=== PATIENT | female | born 1950 | race Caucasian/White ===

== ENCOUNTER 2017-02-02 09:20 | Inpatient (IN) | payer OTHER ==
--- NOTE | 2017-02-02 10:30 | PDOC ---
History of Present Illness <Nilay Cross - Last Filed: 02/02/17 11:22> - General History Source: Patient Exam Limitations: No Limitations - History of Present Illness Initial Comments: 02/02/17 10:36 The patient is a 66 year old female, with a significant past medical history of hypertension, hyperlipidemia,hypothyroidism, goiter s/p surgery, lower back pain , migraines, Raynauds syndrome, and possible thrombocythemia, who presents to the emergency department sent by her PCP Dr. Trujillo, for evaluation of blue left pinky toe for approximately 5 days.The patient reports she has been experiencing pain to her left pinky toe for approximately 2 weeks. At first she believed the pain was associated with her shoes. As a result she reports using wider low heel shoes. She denies any trauma to the left pinky toe. Patient reports walking around on Tuesday, which exacerbated her symptoms. After returning home, she reports experiencing left pinky toe swelling and sharp pinching sensations. Patient states she woke up in the middle of the night secondary to pain. Patient reports associated chills and sweats on Tuesday. Patient states she visited her PCP earlier this week for evaluation of her toe pain, who reported she had poor circulation and placed her on hydroxyurea BID and 81 mg aspirin once a day. Patient reports subjective fever, productive cough , and dizziness, but denies any abdominal pain, nausea, or vomiting. The patient denies any chest pain, shortness of breath, or palpitations. Patient reports cold-like symptoms approximately 1 week ago. Allergies: None reported. Past Surgical History: Thyroidectomy, Fibroidectomy, Ectopic , section Social History: Former smoker(Quit 1989). Denies alcohol or drug use. PCP: Dr. Trujillo <Muriel John - Last Filed: 02/02/17 15:46> - General Chief Complaint: Pain, Acute Stated Complaint: PCP SENT Time Seen by Provider: 02/02/17 09:38 Past History - Past Medical History Anemia: (THROMBOCYTOPENIA) Asthma: No Cancer: No Cardiac Disorders: No CVA: No COPD: No CHF: No Dementia: No Diabetes: No GI Disorders: Yes (H/O COLON POLYPS) Disorders: No HTN: Yes Hypercholesterolemia: Yes Liver Disease: No Seizures: No Thyroid Disease: Yes Other medical history: RAYNAUDS SYNDROME,MIGRAINES - Surgical History Abdominal Surgery: No Appendectomy: No Cardiac Surgery: No Cholecystectomy: No Lung Surgery: No Neurologic Surgery: No Orthopedic Surgery: No - Psycho/Social/Smoking Cessation Hx Suicidal Ideation: No Smoking History: Former smoker Have you smoked in the past 12 months: No If you are a former smoker, when did you quit?: 1989 Information on smoking cessation initiated: No Hx Alcohol Use: No Drug/Substance Use Hx: No Substance Use Type: None Hx Substance Use Treatment: No <Nilay Cross - Last Filed: 02/02/17 11:22> <Muriel John - Last Filed: 02/02/17 15:46> - Past Medical History Allergies/Adverse Reactions: Allergies Allergy/AdvReac Type Severity Reaction Status Date / Time No Known Allergies Allergy Verified 02/02/17 09:33 Home Medications: Ambulatory Orders Levothyroxine [Synthroid -] 88 mcg PO DAILY 01/20/15 Rosuvastatin Calcium [Crestor] 20 mg PO HS 01/20/15 Tramadol HCl [Ultram -] 50 mg PO PRN PRN 01/20/15 Aspirin [ASA -] 81 mg PO DAILY 02/02/17 Hydroxyurea [Hydrea] 500 mg PO BID 02/02/17 Nebivolol [Bystolic -] 5 mg PO DAILY 02/02/17 Omeprazole 40 mg PO DAILY 02/02/17 Review of Systems - Review of Systems Able to Perform ROS?: Yes Comments:: 02/02/17 10:37 CONSTITUTIONAL: Present: +Fever, +Chills, +Diaphoresis Absent: Generalized Weakness, Malaise, Loss of Appetite HEENT: Present: +Nasal Congestion Absent: Throat Pain, Throat Swelling, Difficulty Swallowing, Mouth Swelling, Ear Pain, Eye Pain, Visual Changes CARDIOVASCULAR: Absent: Chest Pain, Syncope, Palpitations, Irregular Heart Rate, Lightheadedness , Peripheral Edema RESPIRATORY: Present: +Cough Absent: Shortness of Breath, SOB with Exertion, Orthopnea, Wheezing, Stridor, Hemoptysis GASTROINTESTINAL: Absent: Abdominal pain, Abdominal Distension, Nausea, Vomiting, Diarrhea, Constipation, Melena, Hematochezia GENITOURINARY: Absent: Dysuria, Frequency, Urgency, Hesitancy, Flank Pain, Genital Pain MUSCULOSKELETAL: Present: +Swelling/ Erythema/ Blue Left pinky toe Absent: Myalgia, Back pain, Neck Pain SKIN: Absent: Rash, Itching, Pallor HEMEATOLOGIC/IMMUNOLOGIC: Present: +poor circulation Absent: Easy Bleeding, Easy Bruising, Lymphadenopathy, Frequent infections ENDOCRINE: Absent: Unexplained Weight Gain, Unexplained Weight Loss, Heat Intolerance, Cold Intolerance NEUROLOGIC: Present: +Dizziness Absent: Headache, Focal Weakness, Vertigo, Unsteady Gait, Seizure, Mental Status Changes, Incontinence PSYCHIATRIC: Absent: Anxiety, Depression <Muriel John - Last Filed: 02/02/17 15:46> *Physical Exam - Vital Signs Last Vital Signs Temp Pulse Resp BP Pulse Ox 98.6 F 71 16 148/72 99 02/02/17 09:28 02/02/17 09:28 02/02/17 09:28 02/02/17 09:28 02/02/17 09:28 <Nilay Cross - Last Filed: 02/02/17 11:22> - Vital Signs Last Vital Signs Temp Pulse Resp BP Pulse Ox 98.6 F 71 16 148/72 99 02/02/17 09:28 02/02/17 09:28 02/02/17 09:28 02/02/17 09:28 02/02/17 09:28 - Physical Exam Comments: 02/02/17 10:37 GENERAL: The patient is awake, alert, and fully oriented, in no acute distress. HEAD: Normal with no signs of trauma. EYES: Pupils equal, round and reactive to light, extraocular movements intact, sclera anicteric, conjunctiva clear. ENT: Ears normal, nares patent, oropharynx clear without exudates. Moist mucous membranes. NECK: Normal range of motion, supple without lymphadenopathy, JVD, or masses. LUNGS: Breath sounds equal, clear to auscultation bilaterally. No wheezes, and no crackles. HEART: Regular rate and rhythm, normal S1 and S2 without murmur, rub or gallop. ABDOMEN: Soft, nontender, normoactive bowel sounds. No guarding, no rebound. No masses. EXTREMITIES: Blue distally and erythematous proximal joint to the left 5th toe. Capillary refill 15 seconds in the left 5th toe. Toes are cold. Pain with dorsiflexion to the left 5th toe. Skin intact. Nail bed intact. Normal range of motion. No clubbing or cyanosis. No cords. NEUROLOGICAL: Cranial nerves II through XII grossly intact. Normal speech, normal gait. PSYCH: Normal mood, normal affect. SKIN: Warm, Dry, normal turgor, no rashes or lesions noted. CIRCULATION: Left leg femoral pulse 2+, DP 2+, PT 2+. Cap refill of toes 1-4 3 seconds, 5th toe 15 seconds. <Muriel John - Last Filed: 02/02/17 15:46> Heart Score/ECG Review - ECG Intrepretation Comment:: 02/02/17 10:30 Twelve-lead EKG was reviewed by me. The rhythm is normal sinus rhythm at a rate of 68 bpm. The axis is normal. The intervals are normal. There is nonspecific T-wave flattening in the lateral leads. Old EKG for comparison is pending at this time. <Nilay Cross - Last Filed: 02/02/17 11:22> ED Treatment Course - LABORATORY CBC & Chemistry Diagram: 02/02/17 10:05 02/02/17 10:05 - RADIOLOGY Radiology Studies Ordered: Category Date Time Status CHEST PA & LAT [RAD] Stat Radiology 02/02/17 10:02 Ordered TOE(S) LEFT [RAD] Stat Radiology 02/02/17 10:14 Ordered <Nilay Cross - Last Filed: 02/02/17 11:22> - LABORATORY CBC & Chemistry Diagram: 02/02/17 10:05 02/02/17 10:05 - RADIOLOGY Radiograph Interpretation: 02/02/17 15:43 EXAM: Toe X-Ray INTERPRETED BY: Dr. Jha REVIEWED BY: Dr. Cross IMPRESSION: Soft tissue changes are noted as above. No radiographic evidence of osteomyelitis is seen. MRI is more sensitive for detection of osteomyelitis. EXAM: CXR INTERPRETED BY: Dr. Alford REVIEWED BY: Dr. Cross IMPRESSION: No acute pathology. No significant change. <Muriel John - Last Filed: 02/02/17 15:46> Medical Decision Making - Medical Decision Making 02/02/17 11:22 66-year-old female with a history of hypertension and hyperlipidemia, former smoker quit many years ago, presents with pain and discoloration in her left fifth toe for more than a week. On examination, there is purplish discoloration and delayed capillary refill, up to 15 seconds capillary refill, but normal dorsalis pedis and posterior tibial pulses. X-ray of the left fifth toe shows no fracture or dislocation, no bony changes. Impression: Ischemic left fifth toe. No atrial fibrillation to suggest embolic disease. No history of diabetes mellitus. Patient also has a history of thrombocytosis. She was recently started on hydroxyurea and baby aspirin. Patient will be admitted for further evaluation of her ischemic toe. There is no evidence of open wound to the area. White blood cell count is elevated, but patient is afebrile. Laboratory Tests 02/02/17 10:05 WBC 16.0 H D RBC 5.33 H Hgb 13.9 Hct 42.3 MCV 79.4 L MCHC 32.8 RDW 16.1 H Plt Count 873 H D MPV 8.8 Neutrophils % 69.8 Lymphocytes % 18.1 D Monocytes % 7.7 Eosinophils % 3.5 Basophils % 0.9 Other lab results are pending at this time. <Nilay Cross - Last Filed: 02/02/17 11:22> - Medical Decision Making 02/02/17 11:41 First call placed to Dr. Trujillo at 11:41. Case discussed at this time. Agreed to admit. Will put in a consult to Dr. Garcia. <Muriel John - Last Filed: 02/02/17 15:46> *DC/Admit/Observation/Transfer - Discharge Dispostion Admit: Yes Decision to Admit order Date/Time: 02/02/17 11:26 <Nilay Cross - Last Filed: 02/02/17 11:22> - Attestations Scribe Attestion: 02/02/17 10:37 Documentation prepared by Muriel John, acting as medical records director for Nilay Cross MD. <Muriel John - Last Filed: 02/02/17 15:46> Diagnosis at time of Disposition: Ischemic toe, Thrombocytosis - Discharge Dispostion Condition at time of disposition: Stable - Referrals
[2017-02-02 11:05] LABS: BASOPHIL 0.9 % (0-2.0); EOSINOPHIL 3.5 % (0-4.5); MCHC 32.8 g/dl (32.0-36.0); MEAN CELL VOLUME 79.4 fl (80-96); MEAN PLT VOLUME 8.8 fl (7.5-11.1); NEUTROPHILS 69.8 % (42.8-82.8); PLATELET COUNT 873 K/MM3 (134-434); RDW 16.1 % (11.6-15.6)
[2017-02-02 11:11] LABS: INR 1.1 (0.82-1.09); PROTHROMBIN TIME (PATIENT) 12.1 SEC (9.98-11.88)
[2017-02-02 11:14] LABS: ACTIVATED PTT 30.9 SECONDS (26.9-34.4)
[2017-02-02 11:27] LABS: ANION GAP 9 (8-16); BILIRUBIN,TOTAL 0.6 mg/dL (0.2-1.0); CALCIUM 9.6 mg/dL (8.5-10.1); CO2 26 mmol/L (21-32); CREATININE 0.7 mg/dL (0.55-1.02); GLUCOSE,RANDOM 106 mg/dL (74-106); SGOT/AST 20 U/L (15-37); SGPT/ALT 22 U/L (12-78); TOT PROT 6.8 g/dl (6.4-8.2)
[2017-02-02 11:28] LABS: ALK PHOS 99 U/L (45-117)
--- NOTE | 2017-02-02 11:51 | EKG ---
Test Reason : Blood Pressure : / mmHG Vent. Rate : 068 BPM Atrial Rate : 068 BPM P-R Int : 132 ms QRS Dur : 080 ms QT Int : 394 ms P-R-T Axes : 047 068 090 degrees QTc Int : 418 ms NORMAL SINUS RHYTHM NONSPECIFIC T WAVE ABNORMALITY ABNORMAL ECG NO PREVIOUS ECGS AVAILABLE Confirmed by ALLYSSA EDWARDS, CURTIS ([id number]) on 02/02/2017 11:51:31 AM Referred By: Confirmed By:CURTIS SPIVEY MD
[2017-02-02 14:17] VITALS: BMI 25.2
--- NOTE | 2017-02-02 16:28 | CONSULT ---
Consult - Alcohol/Substance Use Hx Alcohol Use: No - Smoking History Smoking history: Former smoker Have you smoked in the past 12 months: No If you are a former smoker, when did you quit?: 1989 Home Medications - Allergies Allergies/Adverse Reactions: Allergies Allergy/AdvReac Type Severity Reaction Status Date / Time No Known Allergies Allergy Verified 02/02/17 09:33 - Home Medications Home Medications: Ambulatory Orders Levothyroxine [Synthroid -] 88 mcg PO DAILY 01/20/15 Rosuvastatin Calcium [Crestor] 20 mg PO HS 01/20/15 Tramadol HCl [Ultram -] 50 mg PO PRN PRN 01/20/15 Aspirin [ASA -] 81 mg PO DAILY 02/02/17 Hydroxyurea [Hydrea] 500 mg PO BID 02/02/17 Nebivolol [Bystolic -] 5 mg PO DAILY 02/02/17 Omeprazole 40 mg PO DAILY 02/02/17 Physical Exam Vital Signs: Vital Signs Temperature 98.6 F 02/02/17 14:12 Pulse Rate 69 02/02/17 14:12 Respiratory Rate 18 02/02/17 14:12 Blood Pressure 151/60 02/02/17 14:12 O2 Sat by Pulse Oximetry (%) 100 02/02/17 14:07 Assessment/Plan Vascular Surgery The patient is a 66 year old female, with a significant past medical history of hypertension, hyperlipidemia,hypothyroidism, goiter s/p surgery, lower back pain , migraines, Raynauds syndrome, and possible thrombocythemia, who presents to the emergency department sent by her PCP Dr. Trujillo, for evaluation of blue left pinky toe for approximately 5 days.The patient reports she has been experiencing pain to her left pinky toe for approximately 2 weeks. At first she believed the pain was associated with her shoes. As a result she reports using wider low heel shoes. She denies any trauma to the left pinky toe. Patient reports walking around on Tuesday, which exacerbated her symptoms. After returning home, she reports experiencing left pinky toe swelling and sharp pinching sensations. Patient states she woke up in the middle of the night secondary to pain. Patient reports associated chills and sweats on Tuesday. Patient states she visited her PCP earlier this week for evaluation of her toe pain, who reported she had poor circulation and placed her on hydroxyurea BID and 81 mg aspirin once a day. Patient reports subjective fever, productive cough , and dizziness, but denies any abdominal pain, nausea, or vomiting. The patient denies any chest pain, shortness of breath, or palpitations. Patient reports cold-like symptoms approximately 1 week ago. Allergies: None reported. Past Surgical History: Thyroidectomy, Fibroidectomy, Ectopic , section Social History: Former smoker(Quit 1989). Denies alcohol or drug use. PCP: Dr. Ronnie LEE Head - NC/AT Lung - CTA Heart - RRR abd - soft,nt,nd ext - Left foot warm,pink, Palpable DP and PT pulse. Left fifth toe discolored. A/P Left fifth toe discoloration for 5 dAYS. Pt does not comment on any trauma. Pt has palpable pulses. No need for any vascular intervention at this time. Could this be raynauds? Can treat with antibiotics. Will have to monitor toe to see how it progresses. Toe discoloration with pain could also be due to embolization from the aorta. Will follow Andrew Garcia DO
[2017-02-02] MEDS: SODIUM CHLORIDE 1,000 ML IV SCH (17:36)
[2017-02-02] MEDS: CEFAZOLIN (PRE-DOCKED) 50 ML IVPB SCH (20:50)
[2017-02-02] MEDS: HYDROXYUREA 500 MG CAPSULE PO SCH (21:31)
[2017-02-02] MEDS: ROSUVASTATIN CA 10 MG TABLET (FP) PO SCH (21:31)
[2017-02-02] MEDS: traMADol HCL 50 MG TABLET PO PRN (22:44)
[2017-02-03] MEDS: CEFAZOLIN (PRE-DOCKED) 50 ML IVPB SCH ×3 (01:25→18:29)
[2017-02-03] MEDS: SODIUM CHLORIDE 1,000 ML IV SCH ×2 (04:28→13:34)
[2017-02-03] MEDS: LEVOTHYROXINE NA 88 MCG TABLET (FP) PO SCH (07:26)
[2017-02-03] MEDS ORDERED: PT OWN MED DRAWER 7, Y5N ONE ×3 (10:11→21:15)
[2017-02-03] MEDS: ASPIRIN 81 MG CHEWABLE TABLETS PO SCH (10:15)
[2017-02-03] MEDS: HYDROXYUREA 500 MG CAPSULE PO SCH ×2 (10:15→21:38)
[2017-02-03] MEDS: NEBIVOLOL 5 MG TABLET (FP) PO SCH (10:15)
[2017-02-03] MEDS: PANTOPRAZOLE 40 MG TABLET (FP) PO SCH (10:15)
--- NOTE | 2017-02-03 10:29 | HP ---
Admitting History and Physical - Primary Care Physician PCP: Isiah Sumner - Admission Chief Complaint: left small toe discoloration History of Present Illness: ER HISTORY - History of Present Illness Initial Comments: 02/02/17 10:36 The patient is a 66 year old female, with a significant past medical history of hypertension, hyperlipidemia,hypothyroidism, goiter s/p surgery, lower back pain , migraines, Raynauds syndrome, and possible thrombocythemia, who presents to the emergency department sent by her PCP Dr. Sumner, for evaluation of blue left pinky toe for approximately 5 days.The patient reports she has been experiencing pain to her left pinky toe for approximately 2 weeks. At first she believed the pain was associated with her shoes. As a result she reports using wider low heel shoes. She denies any trauma to the left pinky toe. Patient reports walking around on Tuesday, which exacerbated her symptoms. After returning home, she reports experiencing left pinky toe swelling and sharp pinching sensations. Patient states she woke up in the middle of the night secondary to pain. Patient reports associated chills and sweats on Tuesday. Patient states she visited her PCP earlier this week for evaluation of her toe pain, who reported she had poor circulation and placed her on hydroxyurea BID and 81 mg aspirin once a day. Patient reports subjective fever, productive cough , and dizziness, but denies any abdominal pain, nausea, or vomiting. The patient denies any chest pain, shortness of breath, or palpitations. Patient reports cold-like symptoms approximately 1 week ago. Pt examined by me in the floors Family at bedside Has h/o Thrombocythemia-- seen by Dr sumner on 02/01 for blue left 5 th toe and was advised t go to ER at that time, but refused to go. She states that the bluish color has gotten better. Has pain at underside of toe. Able to move toes. She c/o dysphagia for many years now- she feels food stuck in her chest about 20 min after eating food. She had EGD done before which was normal per pt. She is able to ambulate without any difficulty History Source: Patient Limitations to Obtaining History: No Limitations - Past Medical History Cardiovascular: Yes: HTN, Hyperlipdemia Heme/Onc: Yes: Other (thrombocythemia) Rheumatology: Yes: Other (Reynaud's disease) Endocrine: Yes: Hypothyroidism - Smoking History Smoking history: Former smoker Have you smoked in the past 12 months: No If you are a former smoker, when did you quit?: 1989 - Alcohol/Substance Use Hx Alcohol Use: No Home Medications - Allergies Allergies/Adverse Reactions: Allergies Allergy/AdvReac Type Severity Reaction Status Date / Time No Known Allergies Allergy Verified 02/02/17 09:33 - Home Medications Home Medications: Ambulatory Orders Levothyroxine [Synthroid -] 88 mcg PO DAILY 01/20/15 Rosuvastatin Calcium [Crestor] 20 mg PO HS 01/20/15 Tramadol HCl [Ultram -] 50 mg PO PRN PRN 01/20/15 Aspirin [ASA -] 81 mg PO DAILY 02/02/17 Hydroxyurea [Hydrea] 500 mg PO BID 02/02/17 Nebivolol [Bystolic -] 5 mg PO DAILY 02/02/17 Omeprazole 40 mg PO DAILY 02/02/17 Review of Systems - Review of Systems Constitutional: denies: Chills, Fever, Loss of Appetite, Malaise, Unintentional Wgt. Loss, Weakness Musculoskeletal: reports: Other (toe pain) Physical Examination Vital Signs: Vital Signs Temperature 99 F 02/03/17 06:00 Pulse Rate 60 02/03/17 06:00 Respiratory Rate 20 02/03/17 06:00 Blood Pressure 126/64 02/03/17 06:00 O2 Sat by Pulse Oximetry (%) 100 02/02/17 21:00 Constitutional: Yes: No Distress, Calm Cardiovascular: Yes: Regular Rate and Rhythm Respiratory: Yes: CTA Bilaterally Gastrointestinal: Yes: Normal Bowel Sounds, Soft. No: Distention, Tenderness Extremities: Yes: Other (left 5th toe-- slight bluish in color, pulses palpable , foot is warm, intertrigo) Edema: No Psychiatric: Yes: Alert, Oriented Labs: Laboratory Last Values WBC 16.2 K/mm3 (4.0-10.0) H 02/03/17 10:30 RBC 4.92 M/mm3 (3.60-5.2) 02/03/17 10:30 Hgb 12.7 GM/dL (10.7-15.3) 02/03/17 10:30 Hct 38.7 % (32.4-45.2) 02/03/17 10:30 MCV 78.7 fl (80-96) L 02/03/17 10:30 MCHC 32.9 g/dl (32.0-36.0) 02/03/17 10:30 RDW 15.5 % (11.6-15.6) 02/03/17 10:30 Plt Count 859 K/MM3 (134-434) H 02/03/17 10:30 MPV 8.6 fl (7.5-11.1) 02/03/17 10:30 Neutrophils % 69.5 % (42.8-82.8) 02/03/17 10:30 Lymphocytes % 18.3 % (8-40) 02/03/17 10:30 Monocytes % 6.2 % (3.8-10.2) 02/03/17 10:30 Eosinophils % 4.5 % (0-4.5) 02/03/17 10:30 Basophils % 1.5 % (0-2.0) 02/03/17 10:30 ESR 10 mm/hr (0-30) 02/03/17 10:32 INR 1.10 (0.82-1.09) 02/02/17 10:05 PTT (Actin FS) 30.9 SECONDS (26.9-34.4) 02/02/17 10:05 Sodium 146 mmol/L (136-145) H 02/03/17 10:30 Potassium 4.5 mmol/L (3.5-5.1) 02/03/17 10:30 Chloride 111 mmol/L (98-107) H 02/03/17 10:30 Carbon Dioxide 28 mmol/L (21-32) 02/03/17 10:30 Anion Gap 7 (8-16) L 02/03/17 10:30 BUN 13 mg/dL (7-18) 02/03/17 10:30 Creatinine 0.8 mg/dL (0.55-1.02) 02/03/17 10:30 Creat Clearance w eGFR > 60 (>60) 02/03/17 10:30 Random Glucose 109 mg/dL (74-106) H 02/03/17 10:30 Lactic Acid 1.056 mmol/L (0.4-2.0) 02/02/17 10:50 Uric Acid 5.7 mg/dL (2.6-7.2) 02/03/17 10:30 Calcium 8.9 mg/dL (8.5-10.1) 02/03/17 10:30 Ferritin 51.415 ng/ml (6.9-282.5) 02/03/17 10:30 Total Bilirubin 0.7 mg/dL (0.2-1.0) 02/03/17 10:30 AST 17 U/L (15-37) 02/03/17 10:30 ALT 18 U/L (12-78) 02/03/17 10:30 Alkaline Phosphatase 88 U/L (45-117) 02/03/17 10:30 LD Total 207 U/L (84-246) 02/03/17 10:30 C-Reactive Protein 1.4 MG/DL (0.00-0.3) H 02/03/17 10:30 Total Protein 6.0 g/dl (6.4-8.2) L 02/03/17 10:30 Albumin 3.3 g/dl (3.4-5.0) L 02/03/17 10:30 Blood Type O POSITIVE 02/02/17 10:05 Antibody Screen Negative 02/02/17 10:05 Imaging - Results Chest X-ray: Image Reviewed (clear) X-ray: Report Reviewed (toe xray-- soft tissue swelling) EKG: Image Reviewed (sinus) Problem List - Problems (1) Ischemic toe Assessment/Plan: unlikely ischemic tracey as pt has warm extremities and good peripheral pulses Seen by Vascular Code(s): I99.8 - OTHER DISORDER OF CIRCULATORY SYSTEM (2) Thrombocytosis Assessment/Plan: Hematology evaluation On ASA and Hydroxyurea Code(s): D47.3 - ESSENTIAL (HEMORRHAGIC) THROMBOCYTHEMIA (3) Cellulitis Assessment/Plan: iv antibiotics Code(s): L03.90 - CELLULITIS, UNSPECIFIED Qualifiers: Site of cellulitis of extremity: toe Laterality: left (4) HTN (hypertension) Assessment/Plan: on meds monitor BP Code(s): I10 - ESSENTIAL (PRIMARY) HYPERTENSION Qualifiers: Hypertension type: essential hypertension Qualified Code(s): I10 - Essential (primary) hypertension
[2017-02-03 10:36] LABS: BASOPHIL 1.5 % (0-2.0); EOSINOPHIL 4.5 % (0-4.5); MCH 25.9 pg (25.7-33.7); MCHC 32.9 g/dl (32.0-36.0); MEAN CELL VOLUME 78.7 fl (80-96); MEAN PLT VOLUME 8.6 fl (7.5-11.1); NEUTROPHILS 69.5 % (42.8-82.8); PLATELET COUNT 859 K/MM3 (134-434); RDW 15.5 % (11.6-15.6); WHITE BLOOD COUNT 16.2 K/mm3 (4.0-10.0)
[2017-02-03 11:19] LABS: C-REACTIVE PROTEIN 1.4 MG/DL (0.00-0.3)
[2017-02-03 11:22] LABS: ALBUMIN 3.3 g/dl (3.4-5.0); ALK PHOS 88 U/L (45-117); ANION GAP 7 (8-16); BILIRUBIN,TOTAL 0.7 mg/dL (0.2-1.0); CALCIUM 8.9 mg/dL (8.5-10.1); CO2 28 mmol/L (21-32); COCKROFT - GAULT 74.8425; CREATININE 0.8 mg/dL (0.55-1.02); GLUCOSE,RANDOM 109 mg/dL (74-106); LDH 207 U/L (84-246); SGOT/AST 17 U/L (15-37); SGPT/ALT 18 U/L (12-78); URIC ACID 5.7 mg/dL (2.6-7.2)
[2017-02-03 11:24] LABS: FERRITIN 51.415 ng/ml (6.9-282.5)
[2017-02-03] MEDS ORDERED: LIDOCAINE HCL 1%, 10 MG/ML (20ML VIAL) ONE (13:15)
[2017-02-03] MEDS: NYSTATIN/TRIAMCINOLONE TOPICAL OINTMENT 15 GM TUBE TP SCH ×2 (13:52→21:39)
--- NOTE | 2017-02-03 14:58 | CONSULT ---
Admitting History and Physical - Primary Care Physician PCP: Vivian Jones - Admission History of Present Illness: Pt "c/o dysphagia for many years now- she feels food stuck in her chest about 20 min after eating food. She had EGD done before which was normal per pt" Pt reports c/o dysphagia with solid, food sticking in chest, followed by inability to eat or drink, 3 times a month. Denies vomiting or expectorating a lot of saliva at the time. She needs to stand up and walk around to clear it. She had an EGD a couple of years ago by Dr. Marino. She is now followed by Dr. Hoang.She reports frequent heartburn, "even on oatmeal". History Source: Patient, Family Member, Medical Record Limitations to Obtaining History: No Limitations - Past Medical History Cardiovascular: Yes: HTN, Hyperlipdemia Heme/Onc: Yes: Other (thrombocythemia) Rheumatology: Yes: Other (Reynaud's disease) Endocrine: Yes: Hypothyroidism - Smoking History Smoking history: Former smoker Have you smoked in the past 12 months: No If you are a former smoker, when did you quit?: 1989 - Alcohol/Substance Use Hx Alcohol Use: No History - Admission Reason For Visit: ISCHEMIA OF TOE - Diagnostics X-ray: Report Reviewed - General Mental Status: Alert and Oriented, Awake and Alert, Able to Follow Commands Attention: Intact Ability to Follow Directions: Excellent Head/Neck Control: WFL - Hearing Hearing: Normal Speech Evaluation - Communication Primary Language: GABONESE Communication: Yes: Within Normal Limits Oral Expression Ability: Yes: No Impairment - Speech Production Able to Make Needs Known: Yes: WNL Intelligibility: Yes: WNL - Speech Characteristics Voice Loudness: Normal Voice Pitch: Yes: Normal Voice Phonatory-based Quality: Yes: Normal Speech Pattern: Normal Speech Clarity: < 100% Nasal Resonance: Normal Rate of Speech: Intact - Language/Auditory Comprehension Follows: Yes: Complex Commands - Language/Verbal Expression Functional Communication Status: Yes: WNL - Memory/Perception prison Memory: Yes: WNL Short Term Memory: Yes: WNL - Swallow Evaluation/Bedside Assessment Current Nutritional Intake: Regular, Thin Liquids Oral Secretions: Yes: WFL Dentition: Yes: Adequate Facial Symmetry at Rest: Symmetrical Facial Symmetry on Retraction: Symmetrical Facial Movement: Controlled Against Resistance Opening: Normal Against Resistance Closing: Normal Pucker Lips: Normal Smile: Normal Lingual Movement: Normal, Symmetric Lingual Speed of Movement: Normal Lingual Movement Strgth Against Opposition: Normal Lingual Movement Characteristics: Normal Velopharyngeal Movement: Normal Laryngeal Elevation: WFL Laryngeal Movement: Able to Palpate Bolus Size: WFL Labial Seal: WFL Chewing: WFL Oral Prep Time: WFL A-P Transit: WFL Pocketing: None Timing of Swallow: WFL Coughing/Throat Clear: No Change in Voice: No Recommendations - Speech Evaluation, Impression/Plan Impression: Pt with c/o dysphagia on solids, frequent heartburn, using eating an "entire sandwich before drinking." Solids stick in chest, with improved passage while standing. R/o esophageal dysphagia, r/o GERD/gastritis, less likely stricture/schatzki's ring. Pt denies intake of caffiene, carbonation, citrus, ETOH,smoking and is upright after meals. - Dysphagia Impressions/Plan Swallowing Skills: Impaired Dysphagia Impressions: Ongoing Evaluation Recommendations: GI Consult (Dr. Hoang), MBS w Esophagus (ordered by pmd), Other (Alternate solids with liquids.) - Recommendations Diet Consistency: Regular (soft, moist, extra gravy/condiments), Other (GERD precautions) Medication Administration: Whole with water (denies difficulty with pills) Liquids: Thin Liquids
[2017-02-03] MEDS: ROSUVASTATIN CA 10 MG TABLET (FP) PO SCH (21:39)
--- NOTE | 2017-02-03 23:01 | CONSULT ---
Consult - text type - Consultation Consultation Note: Patient seen and examined The patient is a 66 year old female, with a significant past medical history of hypertension, hyperlipidemia,hypothyroidism, goiter s/p surgery, lower back pain , migraines, Raynauds syndrome, and possible thrombocythemia, who presents for evaluation of blue left pinky toe for approximately 2 weeks.The patient reports she has been experiencing pain to her left pinky toe for approximately 2 weeks. At first she believed the pain was associated with her shoes. As a result she reports using wider low heel shoes. She denies any trauma to the left pinky toe. It has been worse for last 5 days. Patient states she woke up in the middle of the night secondary to pain. Patient reports associated chills and sweats on Tuesday. Patient states she visited her PCP earlier this week for evaluation of her toe pain, who reported she had poor circulation and placed her on hydroxyurea BID and 81 mg aspirin once a day. The patient denies any chest pain, shortness of breath, or palpitations. Patient reports cold-like symptoms approximately 1 week ago. she denies - Past Medical History Cardiovascular: Yes: HTN, Hyperlipdemia Heme/Onc: Yes: Other (thrombocythemia) Rheumatology: Yes: Other (Reynaud's disease) Endocrine: Yes: Hypothyroidism PSH myomectomy fx repair carpal tunnel repair thyroid surgery - Smoking History Smoking history: Former smoker Home Medications - Allergies Allergies/Adverse Reactions: Allergies Allergy/AdvReac Type Severity Reaction Status Date / Time No Known Allergies Allergy Verified 02/02/17 09:33 - Home Medications Home Medications: Ambulatory Orders Levothyroxine [Synthroid -] 88 mcg PO DAILY 01/20/15 Rosuvastatin Calcium [Crestor] 20 mg PO HS 01/20/15 Tramadol HCl [Ultram -] 50 mg PO PRN PRN 01/20/15 Aspirin [ASA -] 81 mg PO DAILY 02/02/17 Hydroxyurea [Hydrea] 500 mg PO BID 02/02/17 Nebivolol [Bystolic -] 5 mg PO DAILY 02/02/17 Omeprazole 40 mg PO DAILY 02/02/17 Review of Systems - Review of Systems Constitutional: denies: Chills, Fever, Loss of Appetite, Malaise, Unintentional Wgt. Loss, Weakness Musculoskeletal: reports: Other (toe pain) Physical Examination Vital Signs: Vital Signs Temperature 99 F 02/03/17 06:00 Pulse Rate 60 02/03/17 06:00 Respiratory Rate 20 02/03/17 06:00 Blood Pressure 126/64 02/03/17 06:00 O2 Sat by Pulse Oximetry (%) 100 02/02/17 21:00 Constitutional: Yes: No Distress, Calm Cardiovascular: Yes: Regular Rate and Rhythm Respiratory: Yes: CTA Bilaterally Gastrointestinal: Yes: Normal Bowel Sounds, Soft. No: Distention, Tenderness Extremities: Yes: Other (left 5th toe-- slight bluish in color, pulses palpable , foot is warm, intertrigo) Edema: No Psychiatric: Yes: Alert, Oriented Labs: Laboratory Last Values WBC 16.2 K/mm3 (4.0-10.0) H 02/03/17 10:30 RBC 4.92 M/mm3 (3.60-5.2) 02/03/17 10:30 Hgb 12.7 GM/dL (10.7-15.3) 02/03/17 10:30 Hct 38.7 % (32.4-45.2) 02/03/17 10:30 MCV 78.7 fl (80-96) L 02/03/17 10:30 MCHC 32.9 g/dl (32.0-36.0) 02/03/17 10:30 RDW 15.5 % (11.6-15.6) 02/03/17 10:30 Plt Count 859 K/MM3 (134-434) H 02/03/17 10:30 MPV 8.6 fl (7.5-11.1) 02/03/17 10:30 Neutrophils % 69.5 % (42.8-82.8) 02/03/17 10:30 Lymphocytes % 18.3 % (8-40) 02/03/17 10:30 Monocytes % 6.2 % (3.8-10.2) 02/03/17 10:30 Eosinophils % 4.5 % (0-4.5) 02/03/17 10:30 Basophils % 1.5 % (0-2.0) 02/03/17 10:30 ESR 10 mm/hr (0-30) 02/03/17 10:32 INR 1.10 (0.82-1.09) 02/02/17 10:05 PTT (Actin FS) 30.9 SECONDS (26.9-34.4) 02/02/17 10:05 Sodium 146 mmol/L (136-145) H 02/03/17 10:30 Potassium 4.5 mmol/L (3.5-5.1) 02/03/17 10:30 Chloride 111 mmol/L (98-107) H 02/03/17 10:30 Carbon Dioxide 28 mmol/L (21-32) 02/03/17 10:30 Anion Gap 7 (8-16) L 02/03/17 10:30 BUN 13 mg/dL (7-18) 02/03/17 10:30 Creatinine 0.8 mg/dL (0.55-1.02) 02/03/17 10:30 Creat Clearance w eGFR > 60 (>60) 02/03/17 10:30 Random Glucose 109 mg/dL (74-106) H 02/03/17 10:30 Lactic Acid 1.056 mmol/L (0.4-2.0) 02/02/17 10:50 Uric Acid 5.7 mg/dL (2.6-7.2) 02/03/17 10:30 Calcium 8.9 mg/dL (8.5-10.1) 02/03/17 10:30 Ferritin 51.415 ng/ml (6.9-282.5) 02/03/17 10:30 Total Bilirubin 0.7 mg/dL (0.2-1.0) 02/03/17 10:30 AST 17 U/L (15-37) 02/03/17 10:30 ALT 18 U/L (12-78) 02/03/17 10:30 Alkaline Phosphatase 88 U/L (45-117) 02/03/17 10:30 LD Total 207 U/L (84-246) 02/03/17 10:30 C-Reactive Protein 1.4 MG/DL (0.00-0.3) H 02/03/17 10:30 Total Protein 6.0 g/dl (6.4-8.2) L 02/03/17 10:30 Albumin 3.3 g/dl (3.4-5.0) L 02/03/17 10:30 Blood Type O POSITIVE 02/02/17 10:05 Antibody Screen Negative 02/02/17 10:05 A/P 66 y/o with h/o autoimmune disease, comes in with Lt. 5th toe bluish discoloration and pain for 2 weeks, worsening since 4 days. Increase pain on elevation and improvement on hanging the legs down. Also platelets WBC elevated. 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
[2017-02-04] MEDS: CEFAZOLIN (PRE-DOCKED) 50 ML IVPB SCH ×3 (02:52→17:06)
[2017-02-04 06:06] LABS: SERUM IRON 60 ug/dL (27-139); TOTAL IRON BINDING CAPACITY 295 ug/dL (250-450); UIBC 235 ug/dL (118-369)
[2017-02-04] MEDS: LEVOTHYROXINE NA 88 MCG TABLET (FP) PO SCH (06:40)
--- NOTE | 2017-02-04 08:04 | PN ---
Progress Note (short form) - Note Progress Note: SUBJECTIVE: Patient seen and examined. Chart reviewed. Comfortable. Feels okay. Afebrile. OBJECTIVE: Vital Signs - 8 hr 02/04/17 07:52 Temperature 98.5 F Pulse Rate 62 Respiratory 20 Rate Blood Pressure 140/72 Intake & Output 02/03/17 02/04/17 02/04/17 23:59 07:59 15:59 Intake Total 1900 1450 Balance 1900 1450 Intake: IV 1400 1400 Normal Saline - 1,000 ml 1400 1400 @ 125 mls/hr IV ASDIR ALEX Rx#:[id number] IVPB 100 50 Oral 400 Other: Voiding Method Toilet # Unmeasured Voids Void 1 Active Medications Aspirin (Asa -) 81 mg PO DAILY [facility] Last Admin: 02/04/17 09:34 Dose: 81 mg Hydroxyurea (Hydrea -) 500 mg PO DAILY [facility] Hydroxyurea (Hydrea -) 1,000 mg PO HS [facility] Last Admin: 02/03/17 21:38 Dose: 1,000 mg Sodium Chloride (Normal Saline -) 1,000 mls @ 125 mls/hr IV ASDIR ALEX Last Admin: 02/03/17 13:34 Dose: 125 mls/hr Cefazolin Sodium (Ancef 1gm Ivpb (Pre-Docked)) 50 mls @ 100 mls/hr IVPB Q8H-IV [facility] Last Admin: 02/04/17 09:36 Dose: 100 mls/hr Levothyroxine Sodium (Synthroid -) 88 mcg PO DAILY@0700 [facility] Last Admin: 02/04/17 06:40 Dose: 88 mcg Nebivolol (Bystolic -) 5 mg PO DAILY [facility] Last Admin: 02/04/17 09:35 Dose: 5 mg Nystatin/Triamcinolone Acetonide (Mycolog Ii Ointment -) 1 applic TP BID [facility] Last Admin: 02/03/17 21:39 Dose: 1 applic Pantoprazole Sodium (Protonix -) 40 mg PO DAILY [facility] Last Admin: 02/04/17 09:34 Dose: 40 mg Rosuvastatin Calcium (Crestor -) 20 mg PO HS [facility] Last Admin: 02/03/17 21:39 Dose: 20 mg Tramadol HCl (Ultram -) 50 mg PO Q6H PRN PRN Reason: HEADACHE Last Admin: 02/02/17 22:44 Dose: 50 mg CBC, BMP 02/03/17 10:30 02/03/17 10:30 Laboratory Results - last 24 hr 02/03/17 02/03/17 02/03/17 10:30 10:30 10:30 ESR Sodium 146 H Potassium 4.5 Chloride 111 H Carbon Dioxide 28 Anion Gap 7 L BUN 13 Creatinine 0.8 Creat Clearance w eGFR > 60 Random Glucose 109 H Uric Acid 5.7 Calcium 8.9 Iron 60 TIBC 295 Iron Saturation 20 Ferritin 51.415 Total Bilirubin 0.7 AST 17 ALT 18 Alkaline Phosphatase 88 LD Total 207 C-Reactive Protein 1.4 H Total Protein 6.0 L Albumin 3.3 L 02/03/17 10:32 ESR 10 Sodium Potassium Chloride Carbon Dioxide Anion Gap BUN Creatinine Creat Clearance w eGFR Random Glucose Uric Acid Calcium Iron TIBC Iron Saturation Ferritin Total Bilirubin AST ALT Alkaline Phosphatase LD Total C-Reactive Protein Total Protein Albumin Microbiology 02/03/17 10:25 Blood Culture - Preliminary Blood - Peripheral Venous NO GROWTH OBTAINED AFTER 24 HOURS, INCUBATION TO CONTINUE FOR 4 DAYS. 02/03/17 10:20 Blood Culture - Preliminary Blood - Peripheral Venous NO GROWTH OBTAINED AFTER 24 HOURS, INCUBATION TO CONTINUE FOR 4 DAYS. PHYSICAL EXAMINATION: Constitutional: Yes: No Distress, Calm Cardiovascular: Yes: Regular Rate and Rhythm Respiratory: Yes: CTA Bilaterally Gastrointestinal: Yes: Normal Bowel Sounds, Soft. No: Distention, Tenderness Extremities: Yes: Other (left 5th toe-- slight bluish in color, pulses palpable , foot is warm) Edema: No Problem List - Problems (1) Ischemic toe Code(s): I99.8 - OTHER DISORDER OF CIRCULATORY SYSTEM (2) Thrombocytosis Code(s): D47.3 - ESSENTIAL (HEMORRHAGIC) THROMBOCYTHEMIA (3) Cellulitis Code(s): L03.90 - CELLULITIS, UNSPECIFIED Qualifiers: Site of cellulitis of extremity: toe Laterality: left (4) HTN (hypertension) Code(s): I10 - ESSENTIAL (PRIMARY) HYPERTENSION ASSESSMENT & PLAN: - Overall better. - Continue antibiotics. - Monitor CBC. - Discussed with Dr. Baker today. - Workup in progress. - Increased Aspirin to BID. - Will follow. Documentation prepared by Dianelys Huerta, acting as a medical physiologist for Deonte Cui MD.
[2017-02-04] MEDS: PANTOPRAZOLE 40 MG TABLET (FP) PO SCH (09:34)
[2017-02-04] MEDS: ASPIRIN 81 MG CHEWABLE TABLETS PO SCH ×2 (09:34→21:31)
[2017-02-04] MEDS: NEBIVOLOL 5 MG TABLET (FP) PO SCH (09:35)
[2017-02-04] MEDS ORDERED: HYDROXYUREA 500 MG CAPSULE PO SCH (10:00)
[2017-02-04] MEDS: SODIUM CHLORIDE 1,000 ML IV SCH (10:04)
[2017-02-04] MEDS: NYSTATIN/TRIAMCINOLONE TOPICAL OINTMENT 15 GM TUBE TP SCH ×2 (10:04→21:31)
--- NOTE | 2017-02-04 12:20 | PN ---
Progress Note (short form) - Note Progress Note: Patient seen and examined Discussed with Dr. Cui Complains of pain in pinky on dorsiflexion of foot Last Vital Signs Temp Pulse Resp BP Pulse Ox 98.5 F 62 20 140/72 100 02/04/17 07:52 02/04/17 07:52 02/04/17 07:52 02/04/17 07:52 02/03/17 21:00 HEENT: SUZY, EOM Intact, Large Pupils Oropharynx: No thrush, No mucositis Neck: Supple Nodes: Without adenopathy Breasts: Without masses Cor: RSR, No murmurs, No gallops Lungs: Clear to P&A Abd: Soft, Normal bowel sounds, No organomegaly Ext: somewhat bluish pinky with good pulses on left Skin: No rashes, Integument intact CBC, BMP 02/03/17 10:30 02/03/17 10:30 Current Medications Generic Name Dose Route Start Last Admin Trade Name Freq PRN Reason Stop Dose Admin Aspirin 81 mg 02/04/17 22:00 Asa - PO BID ALEX Hydroxyurea 500 mg 02/04/17 10:00 Hydrea - PO DAILY ALEX Hydroxyurea 1,000 mg 02/03/17 22:00 02/03/17 21:38 Hydrea - PO 1,000 mg HS ALEX Administration Sodium Chloride 1,000 mls @ 125 mls/hr 02/02/17 11:45 02/03/17 13:34 Normal Saline - IV 125 mls/hr ASDIR ALEX Administration Cefazolin Sodium 50 mls @ 100 mls/hr 02/02/17 20:00 02/04/17 09:36 Ancef 1gm Ivpb (Pre-Docked) IVPB 100 mls/hr Q8H-IV ALEX Administration Levothyroxine Sodium 88 mcg 02/03/17 07:00 02/04/17 06:40 Synthroid - PO 88 mcg DAILY@0700 ALEX Administration Nebivolol 5 mg 02/03/17 10:00 02/04/17 09:35 Bystolic - PO 5 mg DAILY ALEX Administration Nystatin/Triamcinolone Acetonide 1 applic 02/03/17 12:15 02/03/17 21:39 Mycolog Ii Ointment - TP 1 applic BID ALEX Administration Pantoprazole Sodium 40 mg 02/03/17 10:00 02/04/17 09:34 Protonix - PO 40 mg DAILY ALEX Administration Rosuvastatin Calcium 20 mg 02/02/17 22:00 02/03/17 21:39 Crestor - PO 20 mg HS ALEX Administration Tramadol HCl 50 mg 02/02/17 19:54 02/02/17 22:44 Ultram - PO 50 mg Q6H PRN Administration HEADACHE Impression: Likely E.T RICHELLE-2 CALRETICULIN, mpl AND Richelle-12,13, MUTATIONS PENDING. iF POSITIVE , THIS WOULD CONFIRM DIAGNOSIS. CURRENTLY ON HYDREA. WHEN PLATELETS < 450K, LESS BLEEDING RISK TO PROCEED WITH BONE MARROW IF NEEDED. ASA-81 INCREASED TO BID.
--- NOTE | 2017-02-04 12:58 | PATH ---
Surgical Pathology Report Patient Name: ARMANDO GOLDSMITH [facility] Rec. #: [id number] /Age/Gender: 1950 (Age: 66) / F Account: [id number] Location: [facility] MED/SURG Taken: 02/03/2017 Received: 02/03/2017 Reported: 02/04/2017 Physicians: Angelia Chatterjee M.D. Specimen(s) Received PERIPHERAL BLOOD Clinical History None Provided Final Diagnosis PERIPHERAL BLOOD: FLOW CYTOMETRY [facility] [place] ([id number]) shows the following: INTERPRETATION: No atypical flow cytometric findings. PHENOTYPE: Lymphocytes include polyclonal B cells, NK cells and immunophenotypically normal CD4+ and CD8+ T cells in normal proportions. No evidence of a clonal lymphoid expansion. Granulocytes are immunophenotypically mature. Comment: Molecular studies are pending, and a report will follow. Electronically Signed Sawyer Carrasquillo M.D. Addendum Reported: 02/04/2017 Addendum Diagnosis JAK2 V617F MUTATION ANALYSIS BY PCR PERFORMED AND INTERPRETED AT [facility] [place] ([id number]) SHOWED THE FOLLOWING: RESULTS: BOTH MUTANT AND WILD-TYPE JAK2 SEQUENCES WERE DETECTED. INTERPRETATION: POSITIVE FOR JAK2 V617F MUTATION. Comment: The acquired somatic V617F JAK2 mutation has been found in a majority of patients with Polycythemia Vera (PV)(>90%), and 30-50% of patients with either essential thrombocythemia (ET) and or myelofibrosis (MF) according to literature. The mutation is not detected in normal individuals. Bobby Solitario M.D. Addendum Reported: 02/08/2017 Addendum Diagnosis Molecular Pathology Report received from [facility] in [place], [place] ([id number]) shows the following: BCR/ABL GENE REARRANGEMENT (IS) ANALYSIS RESULTS: NEGATIVE BCR/ABL Major Breakpoints (b2a2 and b3a2): NOT DETECTED BCR/ABL Minor Breakpoint (e1a2): NOT DETECTED INTERPRETATION: No BCR-ABL translocation was detected in this sample. Sawyer Carrasquillo M.D. Gross Description Received are 2 green top tubes and 2 lavender top tubes of blood which are sent to [facility]. DL/02/03/2017 saudi/02/03/2017
[2017-02-04] MEDS ORDERED: PT OWN MED DRAWER 7, Y5N ONE (21:25)
[2017-02-04] MEDS: ROSUVASTATIN CA 10 MG TABLET (FP) PO SCH (21:31)
[2017-02-04] MEDS: HYDROXYUREA 500 MG CAPSULE PO SCH (21:31)
[2017-02-05] MEDS: CEFAZOLIN (PRE-DOCKED) 50 ML IVPB SCH ×3 (01:47→18:09)
[2017-02-05] MEDS: LEVOTHYROXINE NA 88 MCG TABLET (FP) PO SCH (06:15)
[2017-02-05] MEDS: traMADol HCL 50 MG TABLET PO PRN ×2 (06:17→14:40)
[2017-02-05 07:35] LABS: BASOPHIL 1.2 % (0-2.0); EOSINOPHIL 5.3 % (0-4.5); MCH 26.3 pg (25.7-33.7); MCHC 33.2 g/dl (32.0-36.0); MEAN CELL VOLUME 79.2 fl (80-96); MEAN PLT VOLUME 8.7 fl (7.5-11.1); PLATELET COUNT 856 K/MM3 (134-434); RDW 15.6 % (11.6-15.6); WHITE BLOOD COUNT 15.5 K/mm3 (4.0-10.0)
[2017-02-05 08:04] LABS: ALBUMIN 3.6 g/dl (3.4-5.0); ANION GAP 10 (8-16); CALCIUM 9.7 mg/dL (8.5-10.1); CO2 25 mmol/L (21-32); GLUCOSE,RANDOM 85 mg/dL (74-106)
[2017-02-05 08:06] LABS: IGG IMMUNOGLOBULIN 703 mg/dL (700-1600); IGM IMMUNOGLOBULIN 101 mg/dL (26-217)
[2017-02-05 08:12] LABS: ALK PHOS 86 U/L (45-117); BILIRUBIN,TOTAL 0.9 mg/dL (0.2-1.0); COCKROFT - GAULT 85.5355; CREATININE 0.7 mg/dL (0.55-1.02); SGOT/AST 16 U/L (15-37); SGPT/ALT 17 U/L (12-78); TOT PROT 6.3 g/dl (6.4-8.2)
--- NOTE | 2017-02-05 09:00 | PN ---
Progress Note (short form) - Note Progress Note: Patient seen and examined Complains of pain in left pinky. Improved on standins. Remains bluish in color. ROS- otherwise non revealing__ no headache, diplopia, epistaxis, dysphagia, GI complaints, complaints Last Vital Signs Temp Pulse Resp BP Pulse Ox 97.3 F L 63 18 155/84 97 02/05/17 06:00 02/05/17 06:00 02/05/17 06:00 02/05/17 06:00 02/04/17 21:00 HEENT: SUZY, EOM Intact Oropharynx: No thrush, No mucositis Neck: Supple Cor: RSR, No murmurs, No gallops Lungs: Clear to P&A Abd: Soft, Normal bowel sounds, No organomegaly Ext:No significant edema Pinky left foot remains with bluish discoloration Pulses distally 2+ Skin: No rashes, Integument intact CBC, BMP 02/05/17 07:20 02/05/17 07:20 Impression: RICHELLE-2 positive. This confirms diagnosis of Essential thrombocythemia . Platelets remain elevated . To increase hydrea. Would maintain BID-- ASA-81 mg.
[2017-02-05 09:06] LABS: URIC ACID 4.5 mg/dL (2.6-7.2)
[2017-02-05] MEDS ORDERED: PT OWN MED DRAWER 7, Y5N ONE ×3 (09:35→21:45)
[2017-02-05] MEDS: ASPIRIN 81 MG CHEWABLE TABLETS PO SCH ×2 (09:56→21:58)
[2017-02-05] MEDS: PANTOPRAZOLE 40 MG TABLET (FP) PO SCH (09:56)
[2017-02-05] MEDS: SODIUM CHLORIDE 1,000 ML IV SCH ×3 (09:57→18:11)
[2017-02-05] MEDS: NEBIVOLOL 5 MG TABLET (FP) PO SCH (09:57)
[2017-02-05] MEDS: NYSTATIN/TRIAMCINOLONE TOPICAL OINTMENT 15 GM TUBE TP SCH (09:57)
--- NOTE | 2017-02-05 11:02 | PN ---
Progress Note, Physician Chief Complaint: left 5th toe painful - Current Medication List Current Medications: Active Medications Aspirin (Asa -) 81 mg PO BID [facility] Last Admin: 02/05/17 09:56 Dose: 81 mg Hydroxyurea (Hydrea -) 1,000 mg PO Q12H [facility] Sodium Chloride (Normal Saline -) 1,000 mls @ 125 mls/hr IV ASDIR [facility] Last Admin: 02/05/17 09:57 Dose: 125 mls/hr Cefazolin Sodium (Ancef 1gm Ivpb (Pre-Docked)) 50 mls @ 100 mls/hr IVPB Q8H-IV [facility] Last Admin: 02/05/17 09:56 Dose: 100 mls/hr Levothyroxine Sodium (Synthroid -) 88 mcg PO DAILY@0700 [facility] Last Admin: 02/05/17 06:15 Dose: 88 mcg Nebivolol (Bystolic -) 5 mg PO DAILY [facility] Last Admin: 02/05/17 09:57 Dose: 5 mg Nystatin/Triamcinolone Acetonide (Mycolog Ii Ointment -) 1 applic TP BID [facility] Last Admin: 02/05/17 09:57 Dose: 1 applic Pantoprazole Sodium (Protonix -) 40 mg PO DAILY [facility] Last Admin: 02/05/17 09:56 Dose: 40 mg Rosuvastatin Calcium (Crestor -) 20 mg PO HS [facility] Last Admin: 02/04/17 21:31 Dose: 20 mg Tramadol HCl (Ultram -) 50 mg PO Q6H PRN PRN Reason: HEADACHE Last Admin: 02/05/17 06:17 Dose: 50 mg - Objective Vital Signs: Vital Signs Temperature 97.3 F L 02/05/17 06:00 Pulse Rate 63 02/05/17 06:00 Respiratory Rate 18 02/05/17 06:00 Blood Pressure 155/84 02/05/17 06:00 O2 Sat by Pulse Oximetry (%) 97 02/04/17 21:00 Constitutional: Yes: No Distress Cardiovascular: Yes: Regular Rate and Rhythm Respiratory: Yes: CTA Bilaterally Gastrointestinal: Yes: Normal Bowel Sounds, Soft. No: Tenderness Extremities: Yes: Other (bluish discoloration left 5th toe , tender+) Edema: No Labs: CBC, BMP 02/05/17 07:20 02/05/17 07:20 INR, PTT INR 1.10 (0.82-1.09) 02/02/17 10:05 Problem List - Problems (1) Ischemic toe Code(s): I99.8 - OTHER DISORDER OF CIRCULATORY SYSTEM (2) Thrombocytosis Code(s): D47.3 - ESSENTIAL (HEMORRHAGIC) THROMBOCYTHEMIA (3) Cellulitis Code(s): L03.90 - CELLULITIS, UNSPECIFIED Qualifiers: Site of cellulitis of extremity: toe Laterality: left (4) HTN (hypertension) Code(s): I10 - ESSENTIAL (PRIMARY) HYPERTENSION Assessment/Plan PLAN Hematology follow up noted ASA and Hydroxyurea increased continue with meds Check labs DC planning per Hematology
[2017-02-05] MEDS: HYDROXYUREA 500 MG CAPSULE PO SCH ×2 (11:18→21:58)
[2017-02-05 14:10] LABS: VON WILL RISTOCETIN CO-FACTOR 98 % (50-200)
[2017-02-05] MEDS: ROSUVASTATIN CA 10 MG TABLET (FP) PO SCH (21:58)
[2017-02-06] MEDS: traMADol HCL 50 MG TABLET PO PRN (01:26)
[2017-02-06] MEDS: CEFAZOLIN (PRE-DOCKED) 50 ML IVPB SCH ×3 (01:27→17:59)
[2017-02-06] MEDS: LEVOTHYROXINE NA 88 MCG TABLET (FP) PO SCH (06:07)
[2017-02-06 07:57] LABS: BASOPHIL 1.2 % (0-2.0); EOSINOPHIL 4.5 % (0-4.5); MCH 26.4 pg (25.7-33.7); MCHC 33.4 g/dl (32.0-36.0); MEAN CELL VOLUME 79.1 fl (80-96); MEAN PLT VOLUME 8.7 fl (7.5-11.1); NEUTROPHILS 70.8 % (42.8-82.8); PLATELET COUNT 842 K/MM3 (134-434); RDW 15.9 % (11.6-15.6); WHITE BLOOD COUNT 15.7 K/mm3 (4.0-10.0)
[2017-02-06 08:20] LABS: ALBUMIN 3.3 g/dl (3.4-5.0); ANION GAP 6 (8-16); BILIRUBIN,TOTAL 0.5 mg/dL (0.2-1.0); CALCIUM 8.9 mg/dL (8.5-10.1); CO2 27 mmol/L (21-32); CREATININE 0.6 mg/dL (0.55-1.02); GLUCOSE,RANDOM 88 mg/dL (74-106); LDH 179 U/L (84-246); SGOT/AST 15 U/L (15-37); SGPT/ALT 14 U/L (12-78); TOT PROT 5.8 g/dl (6.4-8.2); URIC ACID 4.1 mg/dL (2.6-7.2)
[2017-02-06 08:21] LABS: ALK PHOS 77 U/L (45-117)
--- NOTE | 2017-02-06 09:02 | PN ---
Progress Note, Physician Chief Complaint: has pain in left toe - Current Medication List Current Medications: Active Medications Aspirin (Asa -) 81 mg PO BID [facility] Last Admin: 02/05/17 21:58 Dose: 81 mg Hydroxyurea (Hydrea -) 1,000 mg PO Q12H [facility] Last Admin: 02/05/17 21:58 Dose: 1,000 mg Sodium Chloride (Normal Saline -) 1,000 mls @ 125 mls/hr IV ASDIR [facility] Last Admin: 02/05/17 18:11 Dose: 125 mls/hr Cefazolin Sodium (Ancef 1gm Ivpb (Pre-Docked)) 50 mls @ 100 mls/hr IVPB Q8H-IV [facility] Last Admin: 02/06/17 01:27 Dose: 100 mls/hr Levothyroxine Sodium (Synthroid -) 88 mcg PO DAILY@0700 [facility] Last Admin: 02/06/17 06:07 Dose: 88 mcg Nebivolol (Bystolic -) 5 mg PO DAILY [facility] Last Admin: 02/05/17 09:57 Dose: 5 mg Pantoprazole Sodium (Protonix -) 40 mg PO DAILY [facility] Last Admin: 02/05/17 09:56 Dose: 40 mg Rosuvastatin Calcium (Crestor -) 20 mg PO HS [facility] Last Admin: 02/05/17 21:58 Dose: 20 mg Tramadol HCl (Ultram -) 50 mg PO Q6H PRN PRN Reason: HEADACHE Last Admin: 02/06/17 01:26 Dose: 50 mg - Objective Vital Signs: Vital Signs Temperature 98.9 F 02/06/17 06:50 Pulse Rate 63 02/06/17 06:50 Respiratory Rate 18 02/06/17 06:50 Blood Pressure 146/97 02/06/17 06:50 O2 Sat by Pulse Oximetry (%) 97 02/05/17 09:00 Constitutional: Yes: No Distress Cardiovascular: Yes: Regular Rate and Rhythm Respiratory: Yes: CTA Bilaterally Extremities: Yes: Other (decreased blue discoloration left 5 th toe) Edema: No Labs: CBC, BMP 02/06/17 06:00 02/06/17 06:00 INR, PTT INR 1.10 (0.82-1.09) 02/02/17 10:05 Problem List - Problems (1) Ischemic toe Code(s): I99.8 - OTHER DISORDER OF CIRCULATORY SYSTEM (2) Thrombocytosis Code(s): D47.3 - ESSENTIAL (HEMORRHAGIC) THROMBOCYTHEMIA (3) Cellulitis Code(s): L03.90 - CELLULITIS, UNSPECIFIED Qualifiers: Site of cellulitis of extremity: toe Laterality: left (4) HTN (hypertension) Code(s): I10 - ESSENTIAL (PRIMARY) HYPERTENSION Qualifiers: Hypertension type: essential hypertension Qualified Code(s): I10 - Essential (primary) hypertension Assessment/Plan PLAN spoke with Hematology may need to increase Hydroxyurea further platelets still high dc antibiotics-- not cellulitis pain control OOB
[2017-02-06] MEDS ORDERED: PT OWN MED DRAWER 7, Y5N ONE ×3 (10:25→21:18)
[2017-02-06] MEDS: ASPIRIN 81 MG CHEWABLE TABLETS PO SCH ×2 (11:03→21:28)
[2017-02-06] MEDS: PANTOPRAZOLE 40 MG TABLET (FP) PO SCH (11:03)
[2017-02-06] MEDS: HYDROXYUREA 500 MG CAPSULE PO SCH (11:03)
[2017-02-06] MEDS: NEBIVOLOL 5 MG TABLET (FP) PO SCH (11:12)
--- NOTE | 2017-02-06 14:10 | PN ---
Progress Note (short form) - Note Progress Note: Patient seen and examined Still with pain left pinky with blue discoloration. Pulses intact Last Vital Signs Temp Pulse Resp BP Pulse Ox 98.9 F 55 L 18 146/75 97 02/06/17 06:50 02/06/17 11:01 02/06/17 11:01 02/06/17 11:01 02/06/17 09:00 HEENT: SUZY, EOM Intact Oropharynx: No thrush, No mucositis Cor: RSR, No murmurs, No gallops Lungs: scattered rhonchi Abd: Soft, Normal bowel sounds, No organomegaly Ext:No significant edema Skin: bluish discoloration of pinky on left peripheral pulses intact 02/06/17 06:00 02/06/17 06:00 Current Medications Generic Name Dose Route Start Last Admin Trade Name Freq PRN Reason Stop Dose Admin Aspirin 81 mg 02/04/17 22:00 02/06/17 11:03 Asa - PO 81 mg BID ALEX Administration Hydroxyurea 1,000 mg 02/05/17 10:00 02/06/17 11:03 Hydrea - PO 1,000 mg Q12H ALEX Administration Sodium Chloride 1,000 mls @ 125 mls/hr 02/02/17 11:45 02/05/17 18:11 Normal Saline - IV 125 mls/hr ASDIR ALEX Administration Cefazolin Sodium 50 mls @ 100 mls/hr 02/02/17 20:00 02/06/17 11:02 Ancef 1gm Ivpb (Pre-Docked) IVPB 100 mls/hr Q8H-IV ALEX Administration Levothyroxine Sodium 88 mcg 02/03/17 07:00 02/06/17 06:07 Synthroid - PO 88 mcg DAILY@0700 ALEX Administration Nebivolol 5 mg 02/03/17 10:00 02/06/17 11:12 Bystolic - PO 5 mg DAILY ALEX Administration Pantoprazole Sodium 40 mg 02/03/17 10:00 02/06/17 11:03 Protonix - PO 40 mg DAILY ALEX Administration Rosuvastatin Calcium 20 mg 02/02/17 22:00 02/05/17 21:58 Crestor - PO 20 mg HS ALEX Administration Tramadol HCl 50 mg 02/02/17 19:54 02/06/17 01:26 Ultram - PO 50 mg Q6H PRN Administration HEADACHE Impression: ET Vascular changes left foot Plan increase hydrea Would have vascular f/u
[2017-02-06] MEDS ORDERED: HYDROXYUREA 500 MG CAPSULE PO SCH ×2 (14:11→22:00)
[2017-02-06] MEDS: SODIUM CHLORIDE 1,000 ML IV SCH (16:56)
[2017-02-06] MEDS: ROSUVASTATIN CA 10 MG TABLET (FP) PO SCH (21:28)
[2017-02-07] MEDS: LEVOTHYROXINE NA 88 MCG TABLET (FP) PO SCH (06:55)
[2017-02-07 07:46] LABS: MCH 26.3 pg (25.7-33.7); MCHC 33.2 g/dl (32.0-36.0); MEAN CELL VOLUME 79.3 fl (80-96); PLATELET COUNT 924 K/MM3 (134-434); RDW 15.8 % (11.6-15.6); WHITE BLOOD COUNT 15.1 K/mm3 (4.0-10.0)
--- NOTE | 2017-02-07 08:32 | PN ---
Progress Note (short form) - Note Progress Note: Subjective Patient seen and examined. Chart reviewed. All follow ups noted. Denies pain. L foot fifth toe remains blue-daniel. Objective Last Vital Signs Temp Pulse Resp BP Pulse Ox 98.5 F 62 18 145/83 97 02/07/17 06:00 02/07/17 06:00 02/07/17 06:00 02/07/17 06:00 02/06/17 09:00 CBC, BMP 02/07/17 06:00 02/06/17 06:00 Laboratory Results - last 24 hr 02/07/17 06:00 WBC 15.1 H RBC 4.79 Hgb 12.6 Hct 38.0 MCV 79.3 L MCHC 33.2 RDW 15.8 H Plt Count 924 H MPV 9.0 Physical Exam Constitutional: Yes: No Distress Cardiovascular: Yes: Regular Rate and Rhythm Respiratory: Yes: CTA Bilaterally Extremities: Yes: Other (decreased blue discoloration left 5 th toe) Edema: No Assessment and Plan Continue present care. Hydroxyurea increased. Platelets increased today. Continue hydroxyurea and aspirin. Bone marrow biopsy?? Will discuss with Dr. Baker Discussed with Dr. Andrew Garcia today. No surgical intervention planned. Monitor platelets. Documentation prepared by Oxana Aden, acting as a biomedical engineering director for Deonte Cui MD.
--- NOTE | 2017-02-07 09:28 | PN ---
Progress Note (short form) - Note Progress Note: Vascular Surgery Pt seen and examined. Walking without any pain. Left foot - palapable DP pulse. Toe less ischemic. less pain. Will cont to monitor. Andrew Garcia DO
[2017-02-07] MEDS ORDERED: HYDROXYUREA 500 MG CAPSULE PO SCH ×3 (10:00→22:00)
[2017-02-07] MEDS ORDERED: PT OWN MED DRAWER 7, Y5N ONE ×2 (10:50→22:29)
[2017-02-07] MEDS: NEBIVOLOL 5 MG TABLET (FP) PO SCH (10:59)
[2017-02-07] MEDS: PANTOPRAZOLE 40 MG TABLET (FP) PO SCH (10:59)
[2017-02-07] MEDS: ASPIRIN 81 MG CHEWABLE TABLETS PO SCH ×2 (10:59→23:04)
--- NOTE | 2017-02-07 11:34 | CON.CARD ---
Consult Consult Specialty:: cardio Referred by:: hugo Reason for Consultation:: ? toe ischemia/embolism - History of Present Illness Chief Complaint: blue toe History of Present Illness: 66 yo female here with blue toe; being evaluated by vascular--no surgery/procedures planned; ? raynaud's related suspected myeloproliferative disorder per heme--hydrea started she was dx'd with Raynaud's years ago by at [facility], never rx'd meds. says "all tests were good". has not had f/u with rheum denies cp, sob, palpitations PMH: hypertension, hyperlipidemia,hypothyroidism, goiter s/p surgery, lower back pain, migraines, Raynauds syndrome, and possible thrombocythemia, who presents for evaluation of blue left pinky toe for approximately 2 weeks - Past Medical History Cardio/Vascular: Yes: HTN, Hyperlipdemia Rheumatology: Yes: Other (Reynaud's disease) Endocrine: Yes: Hypothyroidism - Alcohol/Substance Use Hx Alcohol Use: No - Smoking History Smoking history: Former smoker Have you smoked in the past 12 months: No If you are a former smoker, when did you quit?: 1989 Home Medications - Allergies Allergies/Adverse Reactions: Allergies Allergy/AdvReac Type Severity Reaction Status Date / Time No Known Allergies Allergy Verified 02/02/17 09:33 - Home Medications Home Medications: Ambulatory Orders Levothyroxine [Synthroid -] 88 mcg PO DAILY 01/20/15 Rosuvastatin Calcium [Crestor] 20 mg PO HS 01/20/15 Tramadol HCl [Ultram -] 50 mg PO PRN PRN 01/20/15 Aspirin [ASA -] 81 mg PO DAILY 02/02/17 Hydroxyurea [Hydrea] 500 mg PO BID 02/02/17 Nebivolol [Bystolic -] 5 mg PO DAILY 02/02/17 Omeprazole 40 mg PO DAILY 02/02/17 Review of Systems - Review of Systems Constitutional: denies: Chills, Fever Eyes: denies: Eye Pain HENT: denies: Nasal Congestion Neck: denies: Stiffness Cardiovascular: denies: Palpitations Respiratory: denies: Orthopnea, PND Gastrointestinal: denies: Diarrhea, Rectal Bleeding Genitourinary: denies: Burning, Hematuria Musculoskeletal: denies: Muscle Pain Integumentary: denies: Rash Neurological: denies: Numbness, Seizure, Syncope Endocrine: denies: Excessive Sweating Hematology/Lymphatic: denies: Excessive Bleeding Vital Signs: Vital Signs Temperature 98.5 F 02/07/17 06:00 Pulse Rate 62 02/07/17 06:00 Respiratory Rate 18 02/07/17 06:00 Blood Pressure 145/83 02/07/17 06:00 O2 Sat by Pulse Oximetry (%) 97 02/06/17 09:00 Constitutional: Yes: Well Nourished, No Distress Eyes: No: Sclera Icterus HENT: No: Nasal Congestion Neck: No: Decreased ROM Respiratory: Yes: CTA Bilaterally. No: Accessory Muscle Use Gastrointestinal: Yes: Normal Bowel Sounds. No: Distention, Hepatomegaly, Palpable Mass, Tenderness Cardiovascular: Yes: Regular Rate and Rhythm JVD: No Carotid Bruit: No PMI: Non-Displaced Heart Sounds: Yes: S1, S2. No: Gallop Murmur: No: Systolic Murmur, Diastolic Murmur Musculoskeletal: Yes: Other (No kyphosis) Extremities: Yes: Cyanosis (L 5th toe; 2+ DP pulse; skin not cool). No: Cool Edema: No Peripheral Pulses: 2+ Left Carotid, 2+ Right Carotid, 2+ Left Doralis Pedis, 2+ Right Dorsalis Pedis Integumentary: No: Jaundice Neurological: Yes: Alert, Oriented (x3) Psychiatric: No: Agitated - Other Data Labs, Other Data: CBC, BMP 02/07/17 06:00 02/06/17 06:00 INR, PTT INR 1.10 (0.82-1.09) 02/02/17 10:05 Laboratory Tests 02/06/17 02/07/17 06:00 06:00 WBC 15.1 H Hgb 12.6 Plt Count 924 H Sodium 142 Potassium 5.0 Carbon Dioxide 27 BUN 11 Creatinine 0.6 AST 15 ALT 14 ekg 02/02: NSR; normal axis/interv; no path Q's; NSTWAs (no old) Assessment/Plan HTN: -bp controlled -same meds -CCB add-on trial as below (if bp drops, hold bystolic) HPL: -cont outpt tx hi PLTs/WBCs, suspected myeloproliferative disorder -heme following, on hydrea peripheral cyanosis: -vascular following -PAD not suspected by them (good palpable pulse on exam, skin not cool) -? raynaud's related--will add amlodipine to bp regimen in case this is raynaud' s -? due to sluggish flow from thrombocytopenia-->hyperviscosity (on meds per heme ) -will check LE arterial doppler though distal embolism seems very unlikely per vascular -echo as below -defer holter if no suspicious findings for embolism arise abnormal ECG: -nonspecific TWAs -no angina sx's -will check echo -defer stress test if remains asymptomatic
[2017-02-07] MEDS: amLODIPine BESYLATE 5 MG TABLET (FP) PO SCH (13:44)
[2017-02-07] MEDS: SODIUM CHLORIDE 1,000 ML IV SCH (16:46)
--- NOTE | 2017-02-07 17:07 | PN ---
Progress Note (short form) - Note Progress Note: PAtient seen and examined Lt. foot purplish toe Last Vital Signs Temp Pulse Resp BP Pulse Ox 98.6 F 60 18 146/67 97 02/07/17 14:36 02/07/17 14:36 02/07/17 14:36 02/07/17 14:36 02/07/17 09:00 Cor: RSR, No murmurs, No gallops Lungs: Clear to P&A Abd: Soft, Normal bowel sounds, No organomegaly Ext:No significant edema Abnormal Lab Results 02/07/17 06:00 WBC 15.1 H MCV 79.3 L RDW 15.8 H Plt Count 924 H Active Medications Generic Name Dose Route Start Last Admin Trade Name Freq PRN Reason Stop Dose Admin Amlodipine Besylate 5 mg 02/07/17 11:45 02/07/17 13:44 Norvasc - PO 5 mg DAILY ALEX Administration Aspirin 81 mg 02/04/17 22:00 02/07/17 10:59 Asa - PO 81 mg BID ALEX Administration Hydroxyurea 500 mg 02/08/17 10:00 Hydrea - PO DAILY ALEX Hydroxyurea 1,000 mg 02/07/17 22:00 Hydrea - PO HS ALEX Levothyroxine Sodium 88 mcg 02/03/17 07:00 02/07/17 06:55 Synthroid - PO 88 mcg DAILY@0700 ALEX Administration Nebivolol 5 mg 02/03/17 10:00 02/07/17 10:59 Bystolic - PO 5 mg DAILY ALEX Administration Pantoprazole Sodium 40 mg 02/03/17 10:00 02/07/17 10:59 Protonix - PO 40 mg DAILY ALEX Administration Rosuvastatin Calcium 20 mg 02/02/17 22:00 02/06/17 21:28 Crestor - PO 20 mg HS ALEX Administration Tramadol HCl 50 mg 02/02/17 19:54 02/06/17 01:26 Ultram - PO 50 mg Q6H PRN Administration HEADACHE A/P 66 y/o patient with thrombocytosis/purple toe JAK2+ On hydrea 1500mg daily/1000 mg daily alternating-- will change to 1500mg daily On ASA 81 mg bid disucssed with vascular--microvascular ischemia continue ASA/Hydrea monitor
--- NOTE | 2017-02-07 22:56 | CONSULT ---
Consult Consult Specialty:: Rheumatology - History of Present Illness History of Present Illness: 66 year old female, with a significant past medical history of Raynauds syndrome, intermittent dysphagia, hypertension, hyperlipidemia,hypothyroidism, goiter s/p surgery, lower back pain, migraines andessential thrombocythemia, admitted with blue discoloration of the left 5th toe. HPI. Two weeks ago she developed mild discomfort in the left 5th toe. One week ago she developed bluish discoloration of the left 5th toe and swelling of the left foot. The swelling of the foot improved, however she continues to have blue discoloration of the toe. On admission she was found to have platelets count of 873 and ESR of 10. Pulses were normal. 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 She has been treated with Hydroxyurea. Raynaud's phenomenon. Isaw the patient in February 2016. At that time she reported progressive Raynaud's since 2013, pain in leroy right wrist and a 4 month history of dysphagia to solids and liquids. Work-up revealed MARAGRITA 1:320 with centromere pattern. Anti-SCL=to and RNA polymerase III were negative. On the physical examination there was no sclerodactily or proximal scleroderma, she had no telangiectasia, calcinosis or ischemic changes in tips of digits. Based on these findings she did nto have scleroderma, however I could not rule out an early stage of CREST. I suggested PFT and Echo that apparently were not done. Further work-up in this admission revealed an essential normal echocardiogram ( RVSP 25), and barium swallow normal - Past Medical History Cardio/Vascular: Yes: HTN, Hyperlipdemia Rheumatology: Yes: Other (Reynaud's disease) Endocrine: Yes: Hypothyroidism - Alcohol/Substance Use Hx Alcohol Use: No - Smoking History Smoking history: Former smoker Have you smoked in the past 12 months: No If you are a former smoker, when did you quit?: 1989 Home Medications - Allergies Allergies/Adverse Reactions: Allergies Allergy/AdvReac Type Severity Reaction Status Date / Time No Known Allergies Allergy Verified 02/02/17 09:33 - Home Medications Home Medications: Ambulatory Orders Levothyroxine [Synthroid -] 88 mcg PO DAILY 01/20/15 Rosuvastatin Calcium [Crestor] 20 mg PO HS 01/20/15 Tramadol HCl [Ultram -] 50 mg PO PRN PRN 01/20/15 Aspirin [ASA -] 81 mg PO DAILY 02/02/17 Hydroxyurea [Hydrea] 500 mg PO BID 02/02/17 Nebivolol [Bystolic -] 5 mg PO DAILY 02/02/17 Omeprazole 40 mg PO DAILY 02/02/17 Review of Systems - Review of Systems Constitutional: reports: No Symptoms Eyes: reports: No Symptoms HENT: reports: No Symptoms Neck: reports: No Symptoms Cardiovascular: reports: No Symptoms Respiratory: reports: No Symptoms Gastrointestinal: reports: No Symptoms Musculoskeletal: reports: Other Integumentary: reports: Other (See HPI) Physical Exam Vital Signs: Vital Signs Temperature 98.2 F 02/07/17 17:48 Pulse Rate 60 02/07/17 17:48 Respiratory Rate 18 02/07/17 17:48 Blood Pressure 153/74 02/07/17 17:48 O2 Sat by Pulse Oximetry (%) 97 02/07/17 09:00 Constitutional: Yes: No Distress Eyes: Yes: WNL HENT: Yes: WNL Neck: Yes: WNL Cardiovascular: Yes: WNL Respiratory: Yes: WNL Gastrointestinal: Yes: WNL Musculoskeletal: Yes: Other (No active joints) Extremities: Yes: Other (Bluish discoloration and tenderness in the left 5th toe. Pulses were normal.) Labs: CBC, BMP 02/07/17 06:00 02/06/17 06:00 Laboratory Tests 02/03/17 02/03/17 02/04/17 10:30 10:32 06:15 ESR 10 Total Bilirubin AST ALT Alkaline Phosphatase LD Total C-Reactive Protein 1.4 H IgG 703 IgA 125 IgM 101 02/06/17 06:00 ESR Total Bilirubin 0.5 D AST 15 ALT 14 Alkaline Phosphatase 77 LD Total 179 C-Reactive Protein IgG IgA IgM Problem List - Problems (1) Ischemic toe Assessment/Plan: Ischemia in the left 45th toe, etiology to be determined. TRule out ischemia secondary to thrombocytosis, and Rule our Raynaud's. Less likely atherosclerotic plaque. The patient does not have scleroderma, questionable early CREST. She does nto have other connective tissue disease - no vasculitis, Plan: I will discuss with Hemastology and PCP - obtaining skin Bx. Continue same medications Code(s): I99.8 - OTHER DISORDER OF CIRCULATORY SYSTEM
[2017-02-07] MEDS: HYDROXYUREA 500 MG CAPSULE PO SCH (23:05)
[2017-02-07] MEDS: ROSUVASTATIN CA 10 MG TABLET (FP) PO SCH (23:05)
[2017-02-07] MEDS: traMADol HCL 50 MG TABLET PO PRN (23:06)
[2017-02-08 00:15] LABS: A/G RATIO 1.2 (0.7-1.7); ALBUMIN 3.1 g/dL (2.9-4.4); GLOBULIN, TOTAL 2.6 g/dL (2.2-3.9); M-SPIKE Not Observed g/dL (Not Observed); TOTAL PROTEIN 5.7 g/dL (6.0-8.5)
[2017-02-08] MEDS: LEVOTHYROXINE NA 88 MCG TABLET (FP) PO SCH (07:07)
[2017-02-08 07:53] LABS: BASOPHIL 1.4 % (0-2.0); EOSINOPHIL 3.1 % (0-4.5); MCH 26.8 pg (25.7-33.7); MCHC 34.2 g/dl (32.0-36.0); MEAN CELL VOLUME 78.6 fl (80-96); MEAN PLT VOLUME 8.9 fl (7.5-11.1); NEUTROPHILS 71.3 % (42.8-82.8); PLATELET COUNT 944 K/MM3 (134-434); RDW 15.2 % (11.6-15.6); WHITE BLOOD COUNT 13.1 K/mm3 (4.0-10.0)
[2017-02-08] MEDS ORDERED: HYDROXYUREA 500 MG CAPSULE PO SCH (10:00)
[2017-02-08] MEDS ORDERED: PT OWN MED DRAWER 7, Y5N ONE ×3 (10:25→22:51)
[2017-02-08] MEDS: NEBIVOLOL 5 MG TABLET (FP) PO SCH (10:31)
[2017-02-08] MEDS: PANTOPRAZOLE 40 MG TABLET (FP) PO SCH (10:31)
[2017-02-08] MEDS: ASPIRIN 81 MG CHEWABLE TABLETS PO SCH ×2 (10:31→23:00)
[2017-02-08] MEDS: amLODIPine BESYLATE 5 MG TABLET (FP) PO SCH (10:31)
[2017-02-08] MEDS: HYDROXYUREA 500 MG CAPSULE PO SCH ×2 (10:32→23:00)
--- NOTE | 2017-02-08 12:04 | PN ---
Progress Note, Physician Chief Complaint: has pain in left toe, decreased - Current Medication List Current Medications: Active Medications Amlodipine Besylate (Norvasc -) 5 mg PO DAILY [facility] Last Admin: 02/08/17 10:31 Dose: 5 mg Aspirin (Asa -) 81 mg PO BID [facility] Last Admin: 02/08/17 10:31 Dose: 81 mg Hydroxyurea (Hydrea -) 1,500 mg PO BID [facility] Last Admin: 02/08/17 10:32 Dose: 1,500 mg Levothyroxine Sodium (Synthroid -) 88 mcg PO DAILY@0700 [facility] Last Admin: 02/08/17 07:07 Dose: 88 mcg Nebivolol (Bystolic -) 5 mg PO DAILY [facility] Last Admin: 02/08/17 10:31 Dose: 5 mg Pantoprazole Sodium (Protonix -) 40 mg PO DAILY [facility] Last Admin: 02/08/17 10:31 Dose: 40 mg Rosuvastatin Calcium (Crestor -) 20 mg PO HS [facility] Last Admin: 02/07/17 23:05 Dose: 20 mg Tramadol HCl (Ultram -) 50 mg PO Q6H PRN PRN Reason: HEADACHE Last Admin: 02/07/17 23:06 Dose: 50 mg - Objective Vital Signs: Vital Signs Temperature 100.4 F H 02/08/17 09:00 Pulse Rate 63 02/08/17 09:00 Respiratory Rate 16 02/08/17 09:00 Blood Pressure 150/80 02/08/17 09:00 O2 Sat by Pulse Oximetry (%) 97 02/08/17 09:00 Constitutional: Yes: No Distress Cardiovascular: Yes: Regular Rate and Rhythm Respiratory: Yes: CTA Bilaterally Gastrointestinal: Yes: Normal Bowel Sounds, Soft. No: Tenderness Extremities: Yes: Other (left 5th toe blue) Edema: No Labs: CBC, BMP 02/08/17 06:15 02/06/17 06:00 INR, PTT INR 1.10 (0.82-1.09) 02/02/17 10:05 Problem List - Problems (1) Ischemic toe Code(s): I99.8 - OTHER DISORDER OF CIRCULATORY SYSTEM (2) Thrombocytosis Code(s): D47.3 - ESSENTIAL (HEMORRHAGIC) THROMBOCYTHEMIA (3) Cellulitis Code(s): L03.90 - CELLULITIS, UNSPECIFIED Qualifiers: Site of cellulitis of extremity: toe Laterality: left (4) HTN (hypertension) Code(s): I10 - ESSENTIAL (PRIMARY) HYPERTENSION Qualifiers: Hypertension type: essential hypertension Qualified Code(s): I10 - Essential (primary) hypertension Assessment/Plan PLAN platelets higher Hematology follow up continue with meds Rheumatology eval noted-- pt does not want to do skin biopsy pain control OOB arterial doppler normal Echo - normal
[2017-02-08 14:11] LABS: ALBUMIN 3.6 g/dl (3.4-5.0); ANION GAP 10 (8-16); BILIRUBIN,TOTAL 0.7 mg/dL (0.2-1.0); CALCIUM 9.7 mg/dL (8.5-10.1); CO2 26 mmol/L (21-32); COCKROFT - GAULT 74.8425; CREATININE 0.8 mg/dL (0.55-1.02); GLUCOSE,RANDOM 121 mg/dL (74-106); LDH 216 U/L (84-246); SGOT/AST 16 U/L (15-37); SGPT/ALT 17 U/L (12-78); TOT PROT 6.4 g/dl (6.4-8.2)
[2017-02-08 14:12] LABS: ALK PHOS 91 U/L (45-117)
--- NOTE | 2017-02-08 16:06 | PN ---
Progress Note (short form) - Note Progress Note: Patient seen and examined Prior notes reviewed Last Vital Signs Temp Pulse Resp BP Pulse Ox 97.9 F 62 18 115/58 97 02/08/17 14:00 02/08/17 14:00 02/08/17 14:00 02/08/17 14:00 02/08/17 09:00 HEENT: SUZY, EOM Intact Oropharynx: No thrush, No mucositis Cor: RSR, No murmurs, No gallops Lungs: Clear to P&A Abd: Soft, Normal bowel sounds, No organomegaly Ext: left 5th toe remains bluish with good pulses Skin: No rashes, Integument intact CBC, BMP 02/08/17 06:15 02/08/17 13:20 Current Medications Generic Name Dose Route Start Last Admin Trade Name Freq PRN Reason Stop Dose Admin Amlodipine Besylate 5 mg 02/07/17 11:45 02/08/17 10:31 Norvasc - PO 5 mg DAILY ALEX Administration Aspirin 81 mg 02/04/17 22:00 02/08/17 10:31 Asa - PO 81 mg BID ALEX Administration Hydroxyurea 1,500 mg 02/07/17 22:00 02/08/17 10:32 Hydrea - PO 1,500 mg BID ALEX Administration Levothyroxine Sodium 88 mcg 02/03/17 07:00 02/08/17 07:07 Synthroid - PO 88 mcg DAILY@0700 ALEX Administration Nebivolol 5 mg 02/03/17 10:00 02/08/17 10:31 Bystolic - PO 5 mg DAILY ALEX Administration Pantoprazole Sodium 40 mg 02/03/17 10:00 02/08/17 10:31 Protonix - PO 40 mg DAILY ALEX Administration Rosuvastatin Calcium 20 mg 02/02/17 22:00 02/07/17 23:05 Crestor - PO 20 mg HS ALEX Administration Tramadol HCl 50 mg 02/02/17 19:54 02/07/17 23:06 Ultram - PO 50 mg Q6H PRN Administration HEADACHE Impression: E.T. Blue toe thrombocytosis secondaryt to E.T. Plan: Add agrylin ?? cialis as vasodilator
[2017-02-08] MEDS: ANAGRELIDE HCL 0.5 MG CAPSULE PO SCH ×2 (17:38→22:59)
[2017-02-08 17:53] LABS: URIC ACID 4.6 mg/dL (2.6-7.2)
[2017-02-08] MEDS: ROSUVASTATIN CA 10 MG TABLET (FP) PO SCH (23:00)
[2017-02-09] MEDS: LEVOTHYROXINE NA 88 MCG TABLET (FP) PO SCH (07:16)
[2017-02-09 07:50] LABS: BASOPHIL 0.6 % (0-2.0); EOSINOPHIL 3.2 % (0-4.5); MCH 27.2 pg (25.7-33.7); MCHC 34.7 g/dl (32.0-36.0); MEAN CELL VOLUME 78.5 fl (80-96); MEAN PLT VOLUME 8.7 fl (7.5-11.1); NEUTROPHILS 71.8 % (42.8-82.8); PLATELET COUNT 907 K/MM3 (134-434); RDW 15.4 % (11.6-15.6); WHITE BLOOD COUNT 9.5 K/mm3 (4.0-10.0)
[2017-02-09 08:26] LABS: CALCIUM 9.4 mg/dL (8.5-10.1)
[2017-02-09 08:32] LABS: ALBUMIN 3.3 g/dl (3.4-5.0); ALK PHOS 86 U/L (45-117); ANION GAP 11 (8-16); BILIRUBIN,TOTAL 0.9 mg/dL (0.2-1.0); CO2 24 mmol/L (21-32); COCKROFT - GAULT 85.5355; CREATININE 0.7 mg/dL (0.55-1.02); GLUCOSE,RANDOM 114 mg/dL (74-106); SGOT/AST 15 U/L (15-37); SGPT/ALT 18 U/L (12-78)
[2017-02-09] MEDS ORDERED: PT OWN MED DRAWER 7, Y5N ONE ×2 (10:56→21:29)
[2017-02-09] MEDS: amLODIPine BESYLATE 5 MG TABLET (FP) PO SCH (10:59)
[2017-02-09] MEDS: ASPIRIN 81 MG CHEWABLE TABLETS PO SCH ×2 (10:59→21:31)
[2017-02-09] MEDS: PANTOPRAZOLE 40 MG TABLET (FP) PO SCH (10:59)
[2017-02-09] MEDS: NEBIVOLOL 5 MG TABLET (FP) PO SCH (11:00)
[2017-02-09] MEDS: ANAGRELIDE HCL 0.5 MG CAPSULE PO SCH ×4 (11:01→21:32)
[2017-02-09] MEDS: HYDROXYUREA 500 MG CAPSULE PO SCH ×3 (11:01→21:31)
--- NOTE | 2017-02-09 11:33 | PN ---
Progress Note, Physician Chief Complaint: has pain in left toe, decreased now has pruritic rash on hands and legs , groin - Current Medication List Current Medications: Active Medications Amlodipine Besylate (Norvasc -) 5 mg PO DAILY [facility] Last Admin: 02/09/17 10:59 Dose: 5 mg Anagrelide HCl (Agrylin -) 0.5 mg PO QID [facility] Last Admin: 02/09/17 11:01 Dose: 0.5 mg Aspirin (Asa -) 81 mg PO BID [facility] Last Admin: 02/09/17 10:59 Dose: 81 mg Hydroxyurea (Hydrea -) 1,500 mg PO BID [facility] Last Admin: 02/09/17 11:09 Dose: Not Given Levothyroxine Sodium (Synthroid -) 88 mcg PO DAILY@0700 [facility] Last Admin: 02/09/17 07:16 Dose: 88 mcg Nebivolol (Bystolic -) 5 mg PO DAILY [facility] Last Admin: 02/09/17 11:00 Dose: 5 mg Pantoprazole Sodium (Protonix -) 40 mg PO DAILY [facility] Last Admin: 02/09/17 10:59 Dose: 40 mg Rosuvastatin Calcium (Crestor -) 20 mg PO HS [facility] Last Admin: 02/08/17 23:00 Dose: 20 mg - Objective Vital Signs: Vital Signs Temperature 99 F 02/09/17 06:41 Pulse Rate 68 02/09/17 06:41 Respiratory Rate 20 02/09/17 06:41 Blood Pressure 128/69 02/09/17 06:41 O2 Sat by Pulse Oximetry (%) 97 02/08/17 21:00 Constitutional: Yes: No Distress Cardiovascular: Yes: Regular Rate and Rhythm Respiratory: Yes: CTA Bilaterally Gastrointestinal: Yes: Normal Bowel Sounds, Soft. No: Tenderness Edema: No Integumentary: Yes: Rash (dorsum of hands and legs) Labs: CBC, BMP 02/09/17 06:30 02/09/17 06:30 INR, PTT INR 1.10 (0.82-1.09) 02/02/17 10:05 Problem List - Problems (1) Ischemic toe Code(s): I99.8 - OTHER DISORDER OF CIRCULATORY SYSTEM (2) Thrombocytosis Code(s): D47.3 - ESSENTIAL (HEMORRHAGIC) THROMBOCYTHEMIA (3) Cellulitis Code(s): L03.90 - CELLULITIS, UNSPECIFIED Qualifiers: Site of cellulitis of extremity: toe Laterality: left (4) HTN (hypertension) Code(s): I10 - ESSENTIAL (PRIMARY) HYPERTENSION Qualifiers: Hypertension type: essential hypertension Qualified Code(s): I10 - Essential (primary) hypertension Assessment/Plan PLAN platelets decreasing spoke with Dr Galan today concern for micro-embolisms-- may need Lovenox sc Dermatology eval for rash-- unsure if its due to thrombocytosis and meds continue with meds Rheumatology eval noted-- pt does not want to do skin biopsy pain control OOB arterial doppler normal Echo - normal
[2017-02-09] MEDS ORDERED: COLLOIDAL OATMEAL 1 BAR EACH TP PRN (11:38)
--- NOTE | 2017-02-09 13:09 | PN ---
Progress Note, [employer] - Note Progress Note: Pt reports to be swallowing better, alternating solids with liquids to reduce subjective stasis of food. Selected Entries 02/06/17 02/06/17 02/06/17 12:35 15:44 18:30 Breakfast 75% Lunch 75% Supper 75% Temperature 02/07/17 02/07/17 02/08/17 10:00 10:46 07:39 Breakfast 75% 75% Lunch Supper Temperature 98.6 F 02/08/17 02/08/17 02/08/17 09:00 10:00 14:00 Breakfast 100% Lunch 100% Supper Temperature 100.4 F H 97.9 F 02/08/17 02/08/17 02/08/17 16:30 18:30 22:00 Breakfast Lunch Supper 100% 100% Temperature 98.8 F 02/09/17 06:41 Breakfast Lunch Supper Temperature 99 F No further f/u indicated at this time.
--- NOTE | 2017-02-09 16:41 | PN ---
Progress Note (short form) - Note Progress Note: PAtient seen and examined Lt. foot purplish toe--still painful but discoloration improved Will some chills and erythema at IV site Also with erythema over face/hands Last Vital Signs Temp Pulse Resp BP Pulse Ox 99.2 F 80 20 128/69 97 02/09/17 14:49 02/09/17 14:49 02/09/17 14:49 02/09/17 06:41 02/08/17 21:00 Cor: RSR, No murmurs, No gallops Lungs: Clear to P&A Abd: Soft, Normal bowel sounds, No organomegaly Ext: Lt. foot purplish toe Abnormal Lab Results 02/05/17 02/09/17 02/09/17 07:20 06:30 06:30 MCV 78.5 L Plt Count 907 H Chloride 108 H Random Glucose 114 H LD Total 242 H Total Protein 6.0 L Albumin 3.3 L Active Medications Generic Name Dose Route Start Last Admin Trade Name Freq PRN Reason Stop Dose Admin Amlodipine Besylate 5 mg 02/07/17 11:45 02/09/17 10:59 Norvasc - PO 5 mg DAILY ALEX Administration Anagrelide HCl 0.5 mg 02/08/17 18:00 02/09/17 15:46 Agrylin - PO 0.5 mg QID ALEX Administration Aspirin 81 mg 02/04/17 22:00 02/09/17 10:59 Asa - PO 81 mg BID ALEX Administration Colloidal Oatmeal 1 applic 02/09/17 11:38 Aveeno Soap - TP DAILY PRN HYGEINE Hydroxyurea 1,500 mg 02/07/17 22:00 02/09/17 11:09 Hydrea - PO Not Given BID ALEX Levothyroxine Sodium 88 mcg 02/03/17 07:00 02/09/17 07:16 Synthroid - PO 88 mcg DAILY@0700 ALEX Administration Nebivolol 5 mg 02/03/17 10:00 02/09/17 11:00 Bystolic - PO 5 mg DAILY ALEX Administration Pantoprazole Sodium 40 mg 02/03/17 10:00 02/09/17 10:59 Protonix - PO 40 mg DAILY ALEX Administration Rosuvastatin Calcium 20 mg 02/02/17 22:00 02/08/17 23:00 Crestor - PO 20 mg HS ALEX Administration A/P 66 y/o patient with thrombocytosis/purple toe JAK2+ On hydrea 1500mg bid since WBC reduced will switch to 1000mg bid on anagrelide 0.5mg QID On ASA 81 mg bid disucssed with vascular--microvascular ischemia continue ASA/Hydrea monitor rash --dermatology consult ? erythromelalgia related to ET --but no pain erythema over fce/hands/feet low grade fevers, erythema at iv site -- check cx. ID consult
[2017-02-09] MEDS: ROSUVASTATIN CA 10 MG TABLET (FP) PO SCH (21:31)
[2017-02-10 06:09] LABS: BETA-2-GLYCOPROTEIN I IGA <9 (0-25)
[2017-02-10] MEDS: LEVOTHYROXINE NA 88 MCG TABLET (FP) PO SCH (06:34)
[2017-02-10 07:23] LABS: BASOPHIL 1.4 % (0-2.0); MCH 27.5 pg (25.7-33.7); MCHC 34.7 g/dl (32.0-36.0); MEAN CELL VOLUME 79.2 fl (80-96); MEAN PLT VOLUME 8.6 fl (7.5-11.1); NEUTROPHILS 66.5 % (42.8-82.8); PLATELET COUNT 916 K/MM3 (134-434); RDW 15.2 % (11.6-15.6); WHITE BLOOD COUNT 10.4 K/mm3 (4.0-10.0)
[2017-02-10 07:50] LABS: ALBUMIN 3.7 g/dl (3.4-5.0); ANION GAP 8 (8-16); CALCIUM 9.3 mg/dL (8.5-10.1); CO2 27 mmol/L (21-32); GLUCOSE,RANDOM 95 mg/dL (74-106)
[2017-02-10 07:53] LABS: ALK PHOS 91 U/L (45-117); BILIRUBIN,TOTAL 0.9 mg/dL (0.2-1.0); COCKROFT - GAULT 85.5355; CREATININE 0.7 mg/dL (0.55-1.02); LDH 226 U/L (84-246); SGOT/AST 14 U/L (15-37); SGPT/ALT 17 U/L (12-78); TOT PROT 6.7 g/dl (6.4-8.2)
--- NOTE | 2017-02-10 11:01 | PN ---
Progress Note, Physician Chief Complaint: ID Full note dictated Had some low grade fever but essentially feels well and wants to go home Currently afebrile - Current Medication List Current Medications: Active Medications Amlodipine Besylate (Norvasc -) 5 mg PO DAILY [facility] Last Admin: 02/09/17 10:59 Dose: 5 mg Anagrelide HCl (Agrylin -) 0.5 mg PO QID [facility] Last Admin: 02/09/17 21:32 Dose: 0.5 mg Aspirin (Asa -) 81 mg PO BID [facility] Last Admin: 02/09/17 21:31 Dose: 81 mg Colloidal Oatmeal (Aveeno Soap -) 1 applic TP DAILY PRN PRN Reason: HYGEINE Hydroxyurea (Hydrea -) 1,000 mg PO BID [facility] Last Admin: 02/09/17 21:31 Dose: 1,000 mg Levothyroxine Sodium (Synthroid -) 88 mcg PO DAILY@0700 [facility] Last Admin: 02/10/17 06:34 Dose: 88 mcg Nebivolol (Bystolic -) 5 mg PO DAILY [facility] Last Admin: 02/09/17 11:00 Dose: 5 mg Pantoprazole Sodium (Protonix -) 40 mg PO DAILY [facility] Last Admin: 02/09/17 10:59 Dose: 40 mg Rosuvastatin Calcium (Crestor -) 20 mg PO HS [facility] Last Admin: 02/09/17 21:31 Dose: 20 mg - Objective Vital Signs: Vital Signs Temperature 99.3 F 02/10/17 06:31 Pulse Rate 66 02/10/17 06:31 Respiratory Rate 20 02/10/17 06:31 Blood Pressure 133/93 02/10/17 06:31 O2 Sat by Pulse Oximetry (%) 97 02/09/17 21:00 Constitutional: Yes: No Distress Neck: Yes: WNL, Supple Cardiovascular: Yes: Regular Rate and Rhythm, S1, S2. No: Murmur Respiratory: Yes: WNL, Regular, CTA Bilaterally Gastrointestinal: Yes: WNL, Normal Bowel Sounds, Soft. No: Tenderness, Tenderness, Epigastrium Extremities: Yes: Other (right forearm iv site phlebitis mild tender Erythematous rash hands Swelling of right hand %th toe cyanotic) Labs: CBC, BMP 02/10/17 06:10 02/10/17 06:10 INR, PTT INR 1.10 (0.82-1.09) 02/02/17 10:05 Problem List - Problems (1) Ischemic toe Code(s): I99.8 - OTHER DISORDER OF CIRCULATORY SYSTEM (2) Fever Code(s): R50.9 - FEVER, UNSPECIFIED Assessment/Plan Microbiology 02/06/17 10:15 Urine - Urine Clean Catch Urine Culture - Final NO GROWTH OBTAINED 02/03/17 10:25 Blood - Peripheral Venous Blood Culture - Final NO GROWTH AFTER 5 DAYS INCUBATION 02/03/17 10:20 Blood - Peripheral Venous Blood Culture - Final NO GROWTH AFTER 5 DAYS INCUBATION Laboratory Tests 02/10/17 02/10/17 06:10 06:10 WBC 10.4 H Hgb 13.0 Plt Count 916 H BUN 14 Creatinine 0.7 Creat Clearance w eGFR > 60 Assessment Ischemic left 5th toe secondary Reynauds disease/ Thrombocytosis Low grade temp but normal WBC and looks fine Has phlebitis of the forearm IV cath related Plan Blood cultures neg today so far and neg previously No antibiotics Consider discharge with out pt f/u Discussed with Vivian Blake MD
[2017-02-10] MEDS: ANAGRELIDE HCL 0.5 MG CAPSULE PO SCH ×2 (11:18→14:31)
[2017-02-10] MEDS: HYDROXYUREA 500 MG CAPSULE PO SCH (11:18)
[2017-02-10] MEDS: amLODIPine BESYLATE 5 MG TABLET (FP) PO SCH (11:19)
[2017-02-10] MEDS: NEBIVOLOL 5 MG TABLET (FP) PO SCH (11:19)
[2017-02-10] MEDS: ASPIRIN 81 MG CHEWABLE TABLETS PO SCH (11:19)
[2017-02-10] MEDS: PANTOPRAZOLE 40 MG TABLET (FP) PO SCH (11:19)
--- NOTE | 2017-02-10 12:11 | DS ---
Physical Examination Vital Signs: Vital Signs Temperature 99.3 F 02/10/17 06:31 Pulse Rate 66 02/10/17 06:31 Respiratory Rate 20 02/10/17 06:31 Blood Pressure 133/93 02/10/17 06:31 O2 Sat by Pulse Oximetry (%) 97 02/09/17 21:00 Constitutional: Yes: No Distress Cardiovascular: Yes: Regular Rate and Rhythm Respiratory: Yes: CTA Bilaterally Gastrointestinal: Yes: Normal Bowel Sounds, Soft. No: Tenderness Extremities: Yes: Other (left 5th toe-- bluish) Edema: No Labs: CBC, BMP 02/10/17 06:10 02/10/17 06:10 Discharge Summary Reason For Visit: ISCHEMIA OF TOE Current Active Problems Cellulitis (Acute) Fever (Acute) HTN (hypertension) (Acute) Ischemic toe (Acute) Thrombocytosis (Acute) Hospital Course: admission Pt examined by me in the floors Family at bedside Has h/o Thrombocythemia-- seen by Dr trujillo on 02/01 for blue left 5 th toe and was advised to go to ER at that time, but refused to go. She states that the bluish color has gotten better. Has pain at underside of toe. Able to move toes. She c/o dysphagia for many years now- she feels food stuck in her chest about 20 min after eating food. She had EGD done before which was normal per pt. She is able to ambulate without any difficulty Hospitalization course-- She was seen by Vascular-- no gangrene Hematology-- had microcalcifications - on Hydrea , Agrilide and ASA- dose adjusted Seen by ID today for low grade fever-- blood cultures so far negative per ID-- I spoke with him-- no need for antibiotics. Seen by Rheumatology-- suggested skin biospy-- pt did not want to have that done Pt's toe looks btter Arterial doppler- negative Seen by Cardiology to r/o Embolic events-- Echo normal. Advised stress test as an outpt. Pt 's pain decreased Stable for dc home Condition: Stable - Instructions Referrals: Isiah Trujillo MD [Primary Care Provider] - Disposition: HOME - Home Medications Comprehensive Discharge Medication List: Ambulatory Orders Levothyroxine [Synthroid -] 88 mcg PO DAILY 01/20/15 Rosuvastatin Calcium [Crestor] 20 mg PO HS 01/20/15 Tramadol HCl [Ultram -] 50 mg PO PRN PRN 01/20/15 Aspirin [ASA -] 81 mg PO DAILY 02/02/17 Hydroxyurea [Hydrea] 500 mg PO BID 02/02/17 Nebivolol [Bystolic -] 5 mg PO DAILY 02/02/17 Omeprazole 40 mg PO DAILY 02/02/17
[2017-02-10] MEDS ORDERED: BACITRACIN 30 GM TUBE TOPICAL OINTMENT TP SCH ×2 (14:45→22:00)
[2017-02-10 15:37] VITALS: BP 122/87; PULSE 90; TEMP 98
--- NOTE | 2017-02-10 16:32 | PN ---
Progress Note (short form) - Note Progress Note: PAtient seen and examined Patient all set to go home . Dressed up and anxious to go. Last Vital Signs Temp Pulse Resp BP Pulse Ox 98.0 F 90 16 122/87 97 02/10/17 15:33 02/10/17 15:33 02/10/17 15:33 02/10/17 15:33 02/09/17 21:00 Cor: RSR, No murmurs, No gallops Lungs: Clear to P&A Abd: Soft, Normal bowel sounds, No organomegaly Ext: Lt. foot toe --color is improved Abnormal Lab Results 02/05/17 02/09/17 02/09/17 07:20 06:30 06:30 MCV 78.5 L Plt Count 907 H Chloride 108 H Random Glucose 114 H LD Total 242 H Total Protein 6.0 L Albumin 3.3 L Active Medications Generic Name Dose Route Start Last Admin Trade Name Freq PRN Reason Stop Dose Admin Amlodipine Besylate 5 mg 02/07/17 11:45 02/09/17 10:59 Norvasc - PO 5 mg DAILY ALEX Administration Anagrelide HCl 0.5 mg 02/08/17 18:00 02/09/17 15:46 Agrylin - PO 0.5 mg QID ALEX Administration Aspirin 81 mg 02/04/17 22:00 02/09/17 10:59 Asa - PO 81 mg BID ALEX Administration Colloidal Oatmeal 1 applic 02/09/17 11:38 Aveeno Soap - TP DAILY PRN HYGEINE Hydroxyurea 1,500 mg 02/07/17 22:00 02/09/17 11:09 Hydrea - PO Not Given BID ALEX Levothyroxine Sodium 88 mcg 02/03/17 07:00 02/09/17 07:16 Synthroid - PO 88 mcg DAILY@0700 ALEX Administration Nebivolol 5 mg 02/03/17 10:00 02/09/17 11:00 Bystolic - PO 5 mg DAILY ALEX Administration Pantoprazole Sodium 40 mg 02/03/17 10:00 02/09/17 10:59 Protonix - PO 40 mg DAILY ALEX Administration Rosuvastatin Calcium 20 mg 02/02/17 22:00 02/08/17 23:00 Crestor - PO 20 mg HS ALEX Administration A/P 66 y/o patient with thrombocytosis/purple toe JAK2+ On hydrea 1000mg bid on anagrelide 0.5mg QID--change to bid On ASA 81 mg bid discussed at length with patient and daughter disucssed the concerns of low blood counts, sepsis , worseing ischemia, thrombotic/bleeding events they understand the complications of the disease process They also realize the need for close f/u --- to f/u on Tuesday for CBC check to follow up with vascular team--discussed with Dr. Garcia Contact nos. given
--- NOTE | 2017-02-10 19:18 | CONS ---
DATE OF CONSULTATION: DATE OF DICTATION: 02/10/2017 INFECTIOUS DISEASE CONSULTATION HISTORY OF PRESENT ILLNESS: This is a 66-year-old Joe woman who I am asked to see for low-grade temperature over the last 48 hours. The patient was originally admitted on February 02 with what appeared to be a cyanotic left 5th toe. She has a history of Raynaud disease for which she had been previously followed at [facility]. She is apparently on no therapy for collagen vascular disease, nor has she had any recent rheumatology appointments. She also has thrombocytosis, thrombocythemia for which she was seen by hematology and is on hydroxyurea. The patient was admitted afebrile and had admitting blood cultures which were negative for both blood as well as urine. Over the last 48 hours, she has had some low-grade temperatures only in the absence of any chills or other systemic complaints. She has been seen along the way by cardiology as well as by rheumatology, and has been on aspirin and hydroxyurea. She is on no antibiotics, as her cultures have been negative. She denies any cough, chest pain, abdominal pain, or urinary complaints. PAST MEDICAL HISTORY: Includes hypertension, hyperlipidemia, hypothyroidism, surgery for goiter, chronic low back pain, Raynaud disease, thrombocythemia. MEDICATIONS AT HOME: Levothyroxine, Crestor, tramadol, aspirin, hydroxyurea, nebivolol, omeprazole. ALLERGIES: None known. SOCIAL HISTORY: Former smoker but gave this up many years ago. . No recent travel. No HIV risk factors. FAMILY HISTORY: Reviewed and noncontributory. REVIEW OF SYSTEMS: Respiratory: No cough, shortness of breath, chest pain. Cardiac: No palpitations, syncope, murmur. Gastrointestinal: No dysphagia, abdominal pain, bleeding per rectum, weight loss. Genitourinary: No dysuria, hematuria, urinary frequency. PHYSICAL EXAMINATION: General: She was a pleasant woman in no acute distress. Vital signs: Temperature 99.3, pulse 66, blood pressure 133/93, respirations 20. Neck: Supple without adenopathy. Lungs: Clear to percussion and auscultation. Heart: S1, S2. Regular rhythm without murmur. Abdomen: Soft. Nontender. Positive bowel sounds without organomegaly. Extremities: Revealed a prior catheter phlebitis of the right forearm which was mildly tender to touch but not fluctuant. There was an erythematous rash noted mostly on both hands with some swelling of the right hand. And left purplish 5th toe. LABORATORY: The white count is 10.4 with a hemoglobin of 13, platelets of 916, INR of 1.10, PTT 30.9, BUN 14, creatinine 0.78. Liver enzymes within normal limits. CRP of 1.4, ESR 10. Urinalysis not available. Admitting chest x-ray shows no acute pathology. ASSESSMENT: A 66-year-old female with a history of Raynaud's presents with ischemic left 5th toe in the setting of history of Raynaud's as well as thrombocytosis with an admitting platelet count of 856,000 to 924,000. Seen by hematology. Currently on aspirin and hydroxyurea, to be continued. Low grade fever noted but clinically looks well. Blood cultures negative to date. No obvious evidence of infection at this time. Case was discussed with Dr. Vivian Jones. Most likely she will be discharged to home later today with outpatient followup in rheumatology and hematology. BRUNA ARROYO M.D. [id number]
[2017-02-13 16:09] LABS: FACTOR VIII ACTIVITY 72 % (57-163)
== END 2017-02-10 16:28 | disposition home or self-care (01) | DRG 603 ==
LOC: JER 09:20 → JERBED 11:26 → J8W 12:14
PROVIDERS: ADMIT Internal Medicine; ATTEND Internal Medicine
DX: L03.032 Cellulitis of left toe (principal); I99.8 Other disorder of circulatory system; I10 Essential (primary) hypertension; D47.3 Essential (hemorrhagic) thrombocythemia; R50.9 Fever, unspecified; E78.5 Hyperlipidemia, unspecified; E03.9 Hypothyroidism, unspecified; Z87.891 Personal history of nicotine dependence
CPT/HCPCS: 36415; 71020-TC; 73660-TC; 74230-TC; 80053; 82728; 82784; 83540; 83550; 83605; 83615; 83625; 84155; 84165; 84550; 85025; 85027; 85240; 85245; 85246; 85247; 85610; 85613; 85651; 85730; 85732; 86140; 86146; 86850; 86900; 86901; 87040; 87086; 88300-TC; 92611-GN; 93005; 93010; 93306-TC; 93926-TC; 99285-25; J8999

== ENCOUNTER 2018-02-06 07:44 | Day surgery (SDC) | payer OTHER ==
[2018-02-03 14:36] VITALS: BMI 26.4
[2018-02-06 09:35] VITALS: TEMP 98.4
[2018-02-06 09:49] VITALS: PULSE 55
[2018-02-06 10:37] VITALS: BP 112/52
--- NOTE | 2018-02-07 16:29 | PATH ---
Surgical Pathology Report Patient Name: ARMANDO GOLDSMITH [facility]. Rec. #: [id number] /Age/Gender: 1950 (Age: 67) / F Account: [id number] Location: ASU-ENDOSCOPY Taken: 02/06/2018 Received: 02/06/2018 Reported: 02/07/2018 Physicians: Esperanza Hoang M.D. Specimen(s) Received BIOPSY TRANSVERSE COLON POLYPS Clinical History He Adenoma surveillance Postoperative diagnosis: Diverticulosis, polyps Final Diagnosis TRANSVERSE COLON, POLYPS, BIOPSY: HYPERPLASTIC POLYP. SEPARATE FRAGMENT OF COLONIC MUCOSA WITH SMALL LYMPHOID AGGREGATE. Electronically Signed Ciera Zamudio M.D. Gross Description Received in formalin, labeled "biopsy transverse colon polyps" are 8 arora, irregular portions of soft tissue ranging from 0.1-0.4 cm. in greatest dimension. The specimens are submitted in toto in one cassette. /02/06/2018 saudi02/06/2018
== END 2018-02-06 10:37 | disposition home or self-care (01) ==
LOC: JASU-ENDO 07:44
PROVIDERS: ATTEND Internal Medicine Gastroenterology
PROC: 0DBL8ZX Excision of Transverse Colon, Via Natural or Artificial Opening Endoscopic, Diagnostic (ICD-10-PCS; principal; 2018-02-06 09:00)
DX: Z86.010 Personal history of colon polyps (principal); D12.3 Benign neoplasm of transverse colon; K57.30 Diverticulosis of large intestine without perforation or abscess without bleeding; K64.8 Other hemorrhoids
CPT/HCPCS: 88305-TC

== ENCOUNTER 2021-11-20 11:57 | Emergency (ER) | payer OTHER ==
[2021-11-20 12:27] VITALS: BP 145/63; PULSE 77; TEMP 98.5; BMI 25.7
[2021-11-21 21:07] LABS: SARS-CoV-2 NAA Not Detected (Not Detected)
== END 2021-11-20 13:32 | disposition home or self-care (01) ==
LOC: JERFT 11:57
DX: H10.33 Unspecified acute conjunctivitis, bilateral (principal)
CPT/HCPCS: 99283-25; C9803; U0003; U0005

== ENCOUNTER 2021-12-15 05:54 | Observation (INO) | payer OTHER ==
[2021-12-15] MEDS ORDERED: MAG HYDROX/AL HYDROX/SIMETH -MYLANTA- ORAL SUSPENSION PO ONE (06:21)
[2021-12-15] MEDS ORDERED: SODIUM CHLORIDE 0.9% 500 ML INFUS.BAG IV ONE (06:21)
[2021-12-15] MEDS ORDERED: ACETAMINOPHEN 1000 MG/100 ML BAG IVPB ONE (06:21)
[2021-12-15] MEDS ORDERED: FAMOTIDINE 20 MG/50 ML IVPB 20 MG/50 ML MG IVPB ONE ×2 (06:21→06:36)
[2021-12-15] MEDS ORDERED: ACETAMINOPHEN INJECTION 100 ML IVPB ONE (06:35)
[2021-12-15] MEDS ORDERED: MAG HYDROX/AL HYDROX/SIMETH 30 ML UNIT-DOSE CUP ONE (06:36)
[2021-12-15 07:29] LABS: BASO % 0.6 % (0-2.0); EOS % 0.1 % (0-4.5); HEMATOCRIT 38.6 % (32.4-45.2); LYMPH % 5.9 % (8-40); MCHC 33.6 g/dl (32.0-36.0); MEAN PLT VOLUME 9.3 fl (7.5-11.1); NEUT % 89.4 % (42.8-82.8); PLATELET COUNT 667 10^3/uL (134-434); RBC 4.06 M/mm3 (3.60-5.2); WHITE BLOOD COUNT 14.4 K/mm3 (4.0-10.0)
[2021-12-15 07:31] LABS: CALCIUM 10.4 mg/dL (8.5-10.1)
[2021-12-15 07:32] LABS: ALBUMIN 4.2 g/dl (3.4-5.0); BLOOD UREA NITROGEN 10.5 mg/dL (7-18)
[2021-12-15 07:35] LABS: CREATININE 0.8 mg/dL (0.55-1.3)
[2021-12-15 07:36] LABS: BILIRUBIN,TOTAL 1.1 mg/dL (0.2-1)
[2021-12-15 07:37] LABS: TOT PROT 7.7 g/dl (6.4-8.2)
[2021-12-15 09:57] LABS: EPI CELLS 11 /uL (0-25.1); HYALINE CASTS 0 /uL (0-3.1); URINE APPEARANCE CLEAR; URINE BACTERIA 319 /uL (0-1359); URINE BILIRUBIN NEGATIVE (NEGATIVE); URINE COLOR YELLOW; URINE GLUCOSE (UA) NEGATIVE (NEGATIVE); URINE KETONE TRACE (NEGATIVE); URINE LEUK ESTERASE NEGATIVE (NEGATIVE); URINE NITRITE NEGATIVE (NEGATIVE); URINE PROTEIN 1+ (NEGATIVE); URINE RBC 3 /uL (0-23.9); URINE UROBILINOGEN 0.2 mg/dL (0.2-1.0); URINE WBC 3 /uL (0-25.8)
[2021-12-15 10:05] LABS: BLOOD UREA NITROGEN 8.1 mg/dL (7-18)
[2021-12-15 10:07] LABS: BILIRUBIN,DIRECT 0.2 mg/dL (0.0-0.2)
[2021-12-15 10:08] LABS: CREATININE 0.7 mg/dL (0.55-1.3)
[2021-12-15] MEDS ORDERED: ONDANSETRON 4 MG/2 ML VIAL IVPUSH PRN (16:39)
[2021-12-15] MEDS: SODIUM CHLORIDE 1,000 ML IV SCH (18:11)
[2021-12-15 18:38] VITALS: BMI 24.5
[2021-12-16] MEDS: LEVOTHYROXINE NA 88 MCG TABLET (FP) PO SCH (06:04)
[2021-12-16] MEDS: SODIUM CHLORIDE 1,000 ML IV SCH (06:33)
[2021-12-16 08:48] LABS: EOS % 1.8 % (0-4.5); HEMATOCRIT 33.1 % (32.4-45.2); HEMOGLOBIN 11.4 GM/dL (10.7-15.3); LYMPH % 24.8 % (8-40); MCH 32.4 pg (25.7-33.7); MCHC 34.3 g/dl (32.0-36.0); MEAN CELL VOLUME 94.5 fl (80-96); MEAN PLT VOLUME 8.8 fl (7.5-11.1); MONO % 9.7 % (3.8-10.2); NEUT % 62.7 % (42.8-82.8); PLATELET COUNT 559 10^3/uL (134-434); RBC 3.51 M/mm3 (3.60-5.2); RDW 14.8 % (11.6-15.6); WHITE BLOOD COUNT 7.8 K/mm3 (4.0-10.0)
[2021-12-16 09:08] LABS: CALCIUM 9.9 mg/dL (8.5-10.1); CREATININE 0.7 mg/dL (0.55-1.3)
[2021-12-16 09:18] LABS: ALBUMIN 3.4 g/dl (3.4-5.0)
[2021-12-16] MEDS: HYDROXYUREA 500 MG CAPSULE PO SCH (09:38)
[2021-12-16] MEDS: NEBIVOLOL 5 MG TABLET (FP) PO SCH (09:38)
[2021-12-16] MEDS: POLYETHYLENE GLYCOL (HEALTHYLAX) 3350 17 GM PACKET PO SCH (09:38)
[2021-12-16] MEDS: ENOXAPARIN NA (PORCINE) 40 MG/0.4 ML DISP.SYRIN SQ SCH (09:38)
[2021-12-16] MEDS ORDERED: PANTOPRAZOLE 40 MG TABLET PO SCH (10:00)
[2021-12-16] MEDS: PANTOPRAZOLE SODIUM 40 MG VIAL IVPUSH SCH (10:07)
[2021-12-17] MEDS: LEVOTHYROXINE NA 88 MCG TABLET (FP) PO SCH (06:00)
[2021-12-17] MEDS: ENOXAPARIN NA (PORCINE) 40 MG/0.4 ML DISP.SYRIN SQ SCH (10:24)
[2021-12-17] MEDS: POLYETHYLENE GLYCOL (HEALTHYLAX) 3350 17 GM PACKET PO SCH (10:24)
[2021-12-17] MEDS: NEBIVOLOL 5 MG TABLET (FP) PO SCH (10:25)
[2021-12-17] MEDS: HYDROXYUREA 500 MG CAPSULE PO SCH (10:25)
[2021-12-17] MEDS: PANTOPRAZOLE SODIUM 40 MG VIAL IVPUSH SCH (10:25)
[2021-12-17 10:32] VITALS: BP 125/48; PULSE 60; TEMP 98.6
== END 2021-12-17 14:41 | disposition home or self-care (01) ==
LOC: JER 05:54 → JERBED 12:00 → J5S 16:36
PROVIDERS: ADMIT Internal Medicine; ATTEND Internal Medicine
PROC: 3E033GC Introduction of Other Therapeutic Substance into Peripheral Vein, Percutaneous Approach (ICD-10-PCS; principal; 2021-12-15)
PROC: 3E033NZ Introduction of Analgesics, Hypnotics, Sedatives into Peripheral Vein, Percutaneous Approach (ICD-10-PCS; 2021-12-15)
PROC: 3E023GC Introduction of Other Therapeutic Substance into Muscle, Percutaneous Approach (ICD-10-PCS; 2021-12-15)
PROC: 3E033GC Introduction of Other Therapeutic Substance into Peripheral Vein, Percutaneous Approach (ICD-10-PCS; 2021-12-15)
PROC: 3E0337Z Introduction of Electrolytic and Water Balance Substance into Peripheral Vein, Percutaneous Approach (ICD-10-PCS; 2021-12-15)
DX: K56.7 Ileus, unspecified (principal); I73.00 Raynaud's syndrome without gangrene; E78.5 Hyperlipidemia, unspecified; I10 Essential (primary) hypertension; E07.9 Disorder of thyroid, unspecified; K56.609 Unspecified intestinal obstruction, unspecified as to partial versus complete obstruction; Z90.89 Acquired absence of other organs; R11.2 Nausea with vomiting, unspecified; R10.13 Epigastric pain; D75.839 Thrombocytosis, unspecified; Z87.891 Personal history of nicotine dependence; M34.9 Systemic sclerosis, unspecified; R10.12 Left upper quadrant pain; K21.9 Gastro-esophageal reflux disease without esophagitis; E04.9 Nontoxic goiter, unspecified; Z89.422 Acquired absence of other left toe(s); Z88.8 Allergy status to other drugs, medicaments and biological substances
CPT/HCPCS: 36415; 71046-TC-FY; 74019-TC-FY; 74177-TC; 80048; 80053; 81003; 82248; 83690; 84439; 84443; 84484; 85025; 87086; 93005; 93010; 96365; 96372; 99285-25; C9803; G0378; J8999; Q9967; U0003; U0005

== ENCOUNTER 2022-06-28 05:27 | Day surgery (SDC) | payer OTHER ==
[2022-06-24 14:59] VITALS: BMI 25.0
[2022-06-28 11:20] VITALS: BP 133/72; PULSE 68; RESP 15; TEMP 97
== END 2022-06-28 11:20 | disposition home or self-care (01) ==
LOC: JASU-ENDO 05:27
PROVIDERS: ATTEND Internal Medicine Gastroenterology
PROC: 0DBL8ZX Excision of Transverse Colon, Via Natural or Artificial Opening Endoscopic, Diagnostic (ICD-10-PCS; 2022-06-28)
PROC: 0DB98ZX Excision of Duodenum, Via Natural or Artificial Opening Endoscopic, Diagnostic (ICD-10-PCS; 2022-06-28)
PROC: 0DB78ZX Excision of Stomach, Pylorus, Via Natural or Artificial Opening Endoscopic, Diagnostic (ICD-10-PCS; 2022-06-28)
PROC: 0DBA8ZX Excision of Jejunum, Via Natural or Artificial Opening Endoscopic, Diagnostic (ICD-10-PCS; 2022-06-28)
PROC: 0DBK8ZX Excision of Ascending Colon, Via Natural or Artificial Opening Endoscopic, Diagnostic (ICD-10-PCS; principal; 2022-06-28 09:00)
DX: Z12.11 Encounter for screening for malignant neoplasm of colon (principal); K57.30 Diverticulosis of large intestine without perforation or abscess without bleeding; Z86.010 Personal history of colon polyps; K64.8 Other hemorrhoids; K29.50 Unspecified chronic gastritis without bleeding; B96.81 Helicobacter pylori [H. pylori] as the cause of diseases classified elsewhere
CPT/HCPCS: 88305-TC; 88342-TC